=== PATIENT | female | born 1930 | race Caucasian/White ===

== ENCOUNTER 2017-07-26 19:34 | Inpatient (IN) | payer OTHER, MEDICARE ==
[2017-07-26 19:10] VITALS: O2SAT 100
[2017-07-26] MEDS ORDERED: MIDAZOLAM HCL 5 MG/ML VIAL (1 ML) ONE (19:42)
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
[2017-07-26] MEDS ORDERED: IOHEXOL 350 MG/ML 10 ML VIAL (for RAD DIAG) IVCONTRAST ONE (20:08)
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
[2017-07-26 20:16] LABS: AUTOMATED NEUTROPHIL # 9.8 TH/MM3 (1.8-7.7); BASOPHIL # 0.1 TH/MM3 (0-0.2); BASOPHIL % 0.5 % (0.0-2.0); EOSINOPHIL # 0.1 TH/MM3 (0-0.4); EOSINOPHIL % 0.8 % (0.0-4.0); HEMATOCRIT 40.8 % (35.0-46.0); HEMO FLAGS DIFF FINAL; LYMPH % 25.4 % (9.0-44.0); LYMPHOCYTE # 3.5 TH/MM3 (1.0-4.8); MEAN CELL VOLUME 95.3 FL (80.0-100.0); MEAN CORPUSCULAR HEMOGLOBIN 31.5 PG (27.0-34.0); MONO % 2.8 % (0.0-8.0); NEUT % 70.5 % (16.0-70.0); PLATELET COUNT 302 TH/MM3 (150-450); RED BLOOD COUNT 4.28 MIL/MM3 (4.00-5.30); WHITE BLOOD COUNT 13.9 TH/MM3 (4.0-11.0)
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
[2017-07-26] MEDS ORDERED: SODIUM CHLOR 0.9% 1000 ML INJ 1,000 ML IV SCH (20:18)
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
[2017-07-26 20:28] LABS: I-STAT POTASSIUM 3.6 MMOL/L (3.5-4.9)
[2017-07-26] MEDS ORDERED: MAGNESIUM HYDROXIDE SUSP 30 ML CUP PO PRN (20:30)
[2017-07-26] MEDS ORDERED: SENNOSIDES 8.6 MG TAB PO PRN (20:30)
[2017-07-26] MEDS ORDERED: BISACODYL 10 MG SUPP RECTAL PRN (20:30)
[2017-07-26] MEDS ORDERED: HYDROmorphone HCL PF 1 MG/ML VIAL IV PUSH PRN (20:30)
[2017-07-26] MEDS ORDERED: LACTULOSE SYRUP 20 GM/30 ML CUP PO PRN (20:30)
[2017-07-26] MEDS ORDERED: CHLORHEXIDINE GLUCONATE 2 % 1 PACK (2 CLOTHS) TOP PRN (20:30)
[2017-07-26] MEDS ORDERED: MISCELLANEOUS NURSING INFORMATION XX SCH (20:30)
[2017-07-26 20:39] LABS: APTT (PATIENT) 21.3 SEC (24.3-30.1); PROTHROMBIN TIME - PATIENT 10.7 SEC (9.8-11.6)
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
[2017-07-26 21:00] VITALS: BP 156/67; PULSE 85; RESP 25; TEMP 97.8; O2SAT 93
[2017-07-26] MEDS: DOCUSATE SODIUM 50 MG/SENNA 8.6 MG TAB PO SCH (21:00)
[2017-07-26] MEDS ORDERED: HEPARIN SODIUM - SQ 10,000 UNITS/ML VIAL SQ SCH (21:00)
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
[2017-07-26] MEDS: ACETAMINOPHEN 1000 MG/100 ML 100 ML IV SCH (21:33)
[2017-07-26] MEDS: HYDROmorphone HCL PF 1 MG/ML VIAL IV PUSH PRN (21:34)
[2017-07-26] MEDS: MELATONIN 5 MG TAB PO SCH (21:45)
[2017-07-26 22:00] VITALS: PULSE 85
[2017-07-26] MEDS ORDERED: ONDANSETRON HCL 4 MG/2 ML VIAL IV PUSH PRN (22:30)
[2017-07-26] MEDS: RESP: ALBUTEROL 2.5 MG/IPRATROPIUM 0.5 MG NEB (SCH) NEB (22:37)
[2017-07-26 22:39] VITALS: O2SAT 100
[2017-07-26] MEDS ORDERED: PILL SPLITTER OTHER PRN (23:00)
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
[2017-07-27] VITALS (14 sets, daily range): BP systolic 111–168; BP diastolic 52–67; PULSE 56–98; RESP 14–24; TEMP 97.6–98.1; O2SAT 99–100
[2017-07-27] MEDS: ACETAMINOPHEN 1000 MG/100 ML 100 ML IV SCH ×3 (02:40→16:39)
[2017-07-27] MEDS: FAMOTIDINE 20 MG/2 ML VIAL IV PUSH SCH ×3 (02:50→22:55)
[2017-07-27] MEDS: RESP: ALBUTEROL 2.5 MG/IPRATROPIUM 0.5 MG NEB (SCH) NEB ×4 (03:54→21:05)
[2017-07-27] MEDS: CHLORHEXIDINE GLUCONATE 2 % 1 PACK (2 CLOTHS) TOP SCH (04:00)
[2017-07-27 05:53] LABS: AUTOMATED NEUTROPHIL # 12.4 TH/MM3 (1.8-7.7); BASOPHIL % 0.2 % (0.0-2.0); HEMO FLAGS DIFF FINAL; LYMPH % 7.2 % (9.0-44.0); MEAN CELL VOLUME 95.6 FL (80.0-100.0); MEAN CORPUSCULAR HGB CONC 32.4 % (32.0-36.0); MONO % 4.6 % (0.0-8.0); PLATELET COUNT 214 TH/MM3 (150-450); RED BLOOD COUNT 3.14 MIL/MM3 (4.00-5.30); RED CELL DISTRIBUTION WIDTH 15.6 % (11.6-17.2); WHITE BLOOD COUNT 14.2 TH/MM3 (4.0-11.0)
[2017-07-27] MEDS: predniSONE 1 MG TAB PO SCH (08:22)
[2017-07-27 08:44] LABS: BICARBONATE 25.9 MEQ/L (21.0-32.0); POTASSIUM 4.4 MEQ/L (3.5-5.1)
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
--- NOTE | 2017-07-27 08:56 | EKG ---
Date Performed: 07/27/2017 Time Performed: 05:22:34 PTAGE: 86 years EKG: Sinus rhythm Inferior T wave changes are nonspecific Borderline ECG NO PREVIOUS TRACING DOCTOR: Lance Chan Interpretating Date/Time 07/27/2017 08:55:17
[2017-07-27] MEDS: CHOLECALCIFEROL (VIT D3) 1000 UNIT TAB PO SCH (09:00)
[2017-07-27] MEDS: DOCUSATE SODIUM 50 MG/SENNA 8.6 MG TAB PO SCH ×2 (09:00→20:19)
[2017-07-27] MEDS: HYDROmorphone HCL PF 1 MG/ML VIAL IV PUSH PRN (10:16)
[2017-07-27] MEDS ORDERED: ceFAZolin 2 GM PREMIX 50 ML ONE (11:08)
[2017-07-27] MEDS ORDERED: VANCOMYCIN HCL 1000 MG VIAL ONE (11:08)
[2017-07-27] MEDS ORDERED: SODIUM CHLOR 0.9% 250 ML INJ 250 ML ONE (11:09)
[2017-07-27] MEDS ORDERED: GENTAMICIN SULFATE 80 MG/2 ML VIAL ONE (11:09)
[2017-07-27] MEDS ORDERED: ceFAZolin INJ 1,000 MG VIAL ONE (11:36)
[2017-07-27] MEDS ORDERED: BACITRACIN TOP OINT 15 GM TUBE ONE (12:42)
[2017-07-27] MEDS: LACTATED RINGER'S 1000 ML INJ 1,000 ML IV SCH (13:59)
[2017-07-27] MEDS ORDERED: MORPHINE SULFATE 4 MG/ML INJ IV PUSH PRN (14:00)
[2017-07-27] MEDS ORDERED: SODIUM CHLORIDE 0.9% FLUSH 5 ML FLUSH IVF PRN (14:00)
--- NOTE | 2017-07-27 14:12 | PD.OP ---
cc: Malick Ashford MD Operative Report Date of Surgery: Jul 27, 2017 Preoperative Diagnosis: Displaced left proximal tibia fracture, left leg open wound, comminuted right tibia-fibula fractures Postoperative Diagnosis: Procedure: Closed reduction left tibia plateau fracture, external fixation left leg, complex wound closure 15 cm in length left leg, application wound VAC dressing left leg, intramedullary fixation right tibia Surgeon: Malick Ashford Solution Advisor(s): Antonio Noriega PA-C The surgical procedure was assisted by my physician residential living assistant. My P.A. presence was necessary throughout this case for the manipulation and positioning of the surgical extremity. My P.A. was assisting me throughout the duration of this procedure. The skill set of a physician residential living assistant was medically necessary to complete this procedure. During the surgical case the rn surgical was working at the back table and the physician residential living assistant was directly assisting me. Operation and Findings: This patient sustained an injury resulting in comminuted fractures of left proximal tibia and right distal tibia shaft.. Patient was seen and evaluated preoperatively and found to have too much swelling to proceed with open reduction internal fixation of left tibial plateau. Risk and benefits of surgery were discussed in depth with patient and informed consent was confirmed. Surgical site was marked. Patient was brought to operating room and placed on the OR table. Patient was given IV sedation and GETA. Patient received IV antibiotics and timeout procedure was performed. The left leg was prepped with alcohol followed by Hibiclens and draped in the usual sterile fashion. Procedure began with attention turned towards the left leg laceration. Patient had a large degloving of her proximal calf. Skin subcutaneous tissue and fascia were sharply debrided with scalpel and rongeur. At this point attention was turned to wound closure. The skin was carefully closed with 3-0 nylon. A combination of retention suture and vertical mattress sutures were utilized for closure. Complete closure was not obtainable secondary to skin loss. Next attention was turned to wound VAC dressing. A wound VAC was cut to fit the wound. VAC dressing was now sealed with Ioban. The seal was checked and found to be appropriate. The Vac dressing was set on intermittent 100 mmHg. Next attention was turned towards external fixation of the left leg . Two small incisions were made along the anterior femur and the tibia. Soft tissue was dissected bluntly. Cannulas were placed down to the cortex of bone. Pin sites were predrilled. Orthofix pins were placed into the femur and tibia. Fluoroscopy was used to confirm appropriate pin placement. An external fixator construct was now created with clamps and bars. Next attention was turned to reduction. Traction was applied. Fracture was manipulated. Good alignment of the fracture was obtained. Fluoroscopy was used to confirm appropriate alignment of fracture. The external fixator was now tightened to hold reduction. Sterile dressings were applied. Patient did have swelling around the knee and calf but compartments were soft and compressible with no signs of compartment syndrome. Attention was now turned towards the right leg. The right leg was prepped with alcohol followed by Hibiclens and draped in usual sterile fashion. Procedure began with reduction of fracture. Traction was applied. Fracture was reduced. There was comminution of the fracture. The fracture reduced and excellent alignment was achieved. Fracture clamp was used to aid in reduction. Next a 3 cm incision was made proximal to the patella. Quadriceps tendon was split in line with fibers. Cannulas were placed in the patellofemoral joint to protect the articular surface at all times. A guidepin was placed into the tibia and advanced in the tibial canal. Fluoroscopy was used to confirm appropriate guidepin placement. An opening reamer was used to open the tibial canal. A ball-tipped guidewire was advanced down the tibial canal. Guidepin was passed across the fracture site into the center of the distal tibia. Fluoroscopy confirmed guidepin placement. The nail length was now measured. The fracture was now held in a reduced position and the canal was reamed. The canal was reamed up to appropriate size. A ITS nail was now selected. Next the nail was fully seated. Using perfect [place] technique 4 distal interlocking screws were placed. Using the insertion handle as a guide 2 proximal interlocking screws were placed. Fluoroscopy confirmed excellent of fracture with well-placed hardware. Incisions and the knee joint were thoroughly irrigated with sterile saline. Fascia was closed with #1 Vicryl, subcutaneous tissues closed with 3-0 Vicryl and skin was closed with chana. Sterile dressings were applied. Patient was placed into a well molded splint. Patient was awakened and transferred to recovery in stable condition. Malick Ashford MD Jul 27, 2017 14:12
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
[2017-07-27] MEDS ORDERED: Post-op Orders (for Pharmacy) MISC XX ONE (14:33)
[2017-07-27] MEDS ORDERED: DO NOT ADM ANY ANTICOAGULANT DRUGS PRN (15:00)
[2017-07-27] MEDS ORDERED: *morphine SULFATE 8 MG/ML PERIprocedure ONLY ONE (15:00)
[2017-07-27] MEDS ORDERED: *ENALAPRILAT 1.25 MG/ML VIAL PERIprocedural Use ONLY ONE (15:38)
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
--- NOTE | 2017-07-27 19:08 | ECHRPT ---
Indication: sob CONCLUSIONS The left ventricular systolic function is normal with an estimated ejection fraction in the range of 60-65%. Mild concentric left ventricular hypertrophy. Doppler parameters are consistent with impaired left ventricular relaxtion (grade 1 diastolic dysfun ction). Trace mitral valve regurgitation. There is mild tricuspid valve regurgitation. BP: / HR: Rhythm: Technical Quality:Good FINDINGS LEFT VENTRICLE Normal left ventricular size. Mild concentric left ventricular hypertrophy. The left ventricular systolic function is normal with an estimated ejection fraction in the range of 60-65%. No regional wall motion abnormalities are present. Doppler parameters are consistent with impaired left ventricular relaxtion (grade 1 diastolic dysfun ction). RIGHT VENTRICLE Normal right ventricular size and systolic function. LEFT ATRIUM The left atrial size is upper limits of normal. RIGHT ATRIUM The right atrium is not well visualized. ATRIAL SEPTUM Normal atrial septal thickness without atrial level shunting by limited color doppler interrogation. AORTA The aortic root and proximal ascending aorta are normal in size on limited imaging. MITRAL VALVE Structurally normal mitral valve. Trace mitral valve regurgitation. No mitral valve stenosis. Mild mitral annular calcification. AORTIC VALVE Trileaflet aortic valve. No aortic valve stenosis. No aortic valve regurgitation. TRICUSPID VALVE Structurally normal tricuspid valve. There is mild tricuspid valve regurgitation. No tricuspid valve stenosis. PULMONARY VALVE The pulmonary valve is not well visualized. VESSELS The inferior vena cava is normal in size. PERICARDIUM No pericardial effusion. Paras Carpenter DO (Electronically Signed) Final Date:27 July 2017 19:08
--- NOTE | 2017-07-27 19:42 | RADRPT ---
EXAM DATE/TIME: 07/27/2017 13:01 [facility] COMPARISON: TIBIA/FIBULA LEFT (AP/LAT), July 26, 2017, 19:27. INDICATIONS : External fixator left tib fib. MEDICAL HISTORY : Fractures proximal tibia and fibula SURGICAL HISTORY : None. ENCOUNTER: Subsequent ACUITY: 2 days PAIN SCORE: Non-responsive. LOCATION: Left Tib Fib FINDINGS: Two view examination of the left tibia demonstrates fractures of the proximal tibia and fibula. These appear fairly well aligned. CONCLUSION: Proximal tibia and fibular fractures in good alignment. Eris Guevara MD on July 27, 2017 at 19:40 Board Certified Radiologist. This report was verified electronically.
--- NOTE | 2017-07-27 20:09 | RADRPT ---
EXAM DATE/TIME: 07/27/2017 13:50 [facility] COMPARISON: TIBIA/FIBULA RIGHT (AP/LAT), July 26, 2017, 19:27. INDICATIONS : Im leticia right tibia and fibula. MEDICAL HISTORY : Comminuted fractures distal tibia and fibula SURGICAL HISTORY : None. ENCOUNTER: Subsequent ACUITY: 2 days PAIN SCORE: Non-responsive. LOCATION: Right Tib Fib. FINDINGS: 6 images have been submitted. There is a long leticia through the tibia successful reducing the distal ti bial fracture. There appears to be a fracture of the distal fibula. The knee and ankle joints are ali gned. CONCLUSION: Successful ORIF of a distal tibial fracture. Eris Guevara MD on July 27, 2017 at 20:07 Board Certified Radiologist. This report was verified electronically.
[2017-07-27] MEDS: ACETAMINOPHEN/HYDROcodone 325 MG/7.5 MG TAB PO PRN (20:18)
[2017-07-27] MEDS: MELATONIN 5 MG TAB PO SCH (20:19)
[2017-07-27] MEDS: SODIUM CHLORIDE 0.9% FLUSH 5 ML FLUSH IVF SCH (20:21)
[2017-07-28] VITALS (13 sets, daily range): BP systolic 107–173; BP diastolic 54–75; PULSE 79–101; RESP 15–25; TEMP 96.8–99.1; O2SAT 95–100
[2017-07-28] MEDS: CHLORHEXIDINE GLUCONATE 2 % 1 PACK (2 CLOTHS) TOP SCH (04:00)
[2017-07-28] MEDS: LACTATED RINGER'S 1000 ML INJ 1,000 ML IV SCH ×2 (04:47→12:39)
[2017-07-28] MEDS: RESP: ALBUTEROL 2.5 MG/IPRATROPIUM 0.5 MG NEB (SCH) NEB ×4 (04:54→21:31)
[2017-07-28 04:57] LABS: HEMATOCRIT 25.8 % (35.0-46.0); REVIEW FLAG FINAL
[2017-07-28 05:25] LABS: ANION GAP 7 MEQ/L (5-15); AST (GOT) 26 U/L (15-37); BICARBONATE 23.9 MEQ/L (21.0-32.0); BLOOD UREA NITROGEN 21 MG/DL (7-18); CHLORIDE 110 MEQ/L (98-107); GLOMERULAR FILTRATION RATE 67 ML/MIN (>89); POTASSIUM 4.5 MEQ/L (3.5-5.1); SODIUM (NA) 141 MEQ/L (136-145)
[2017-07-28 05:27] LABS: ALT (GPT) 20 U/L (10-53)
[2017-07-28 05:28] LABS: ALKALINE PHOSPHATASE 53 U/L (45-117); TOTAL BILIRUBIN ADULT 0.4 MG/DL (0.2-1.0)
[2017-07-28] MEDS: ACETAMINOPHEN/HYDROcodone 325 MG/7.5 MG TAB PO PRN ×4 (07:52→20:25)
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
[2017-07-28] MEDS: predniSONE 1 MG TAB PO SCH (09:06)
[2017-07-28] MEDS: DOCUSATE SODIUM 50 MG/SENNA 8.6 MG TAB PO SCH ×2 (09:06→20:25)
[2017-07-28] MEDS: CHOLECALCIFEROL (VIT D3) 1000 UNIT TAB PO SCH (09:06)
--- NOTE | 2017-07-28 09:23 | PD.ORT.PN ---
Subjective Subjective Remarks No complaints Nurse at bedside. In ISC Objective Vitals Vital Signs Date Time Temp Pulse Resp B/P (MAP) Pulse Ox O2 Delivery O2 Flow Rate FiO2 07/28/17 06:00 80 07/28/17 04:57 100 Nasal Cannula 2.00 07/28/17 04:00 80 07/28/17 04:00 98.1 84 15 129/62 (84) 98 07/28/17 02:00 83 07/28/17 01:15 99 Nasal Cannula 2.00 07/28/17 00:00 79 07/28/17 00:00 98.0 81 25 121/56 (77) 99 07/27/17 22:00 84 07/27/17 20:11 99 Nasal Cannula 2.00 07/27/17 20:00 97.9 79 23 136/64 (88) 100 07/27/17 20:00 99 Nasal Cannula 2.00 07/27/17 20:00 79 07/27/17 18:00 78 07/27/17 16:00 97.6 56 21 168/67 (100) 100 07/27/17 16:00 56 07/27/17 15:37 97.4 64 16 153/66 (95) 100 Nasal Cannula 3 07/27/17 15:30 60 16 174/73 (106) 100 Nasal Cannula 3 07/27/17 15:15 65 16 170/74 (106) 100 Nasal Cannula 3 07/27/17 15:00 69 17 175/70 (105) 100 Nasal Cannula 3 07/27/17 14:45 66 15 163/70 (101) 100 Nasal Cannula 3 07/27/17 14:33 98.4 72 15 152/66 (94) 100 Nasal Cannula 3 Manual Cuff/Auscultation 07/27/17 11:03 Nasal Cannula 3 07/27/17 10:00 90 I/O 07/27/17 07/27/17 07/27/17 07/28/17 07/28/17 07/28/17 07:00 15:00 23:00 07:00 15:00 23:00 Intake Total 200 ml 1000 ml 414 ml 1200 ml Output Total 800 ml 600 ml 200 ml 750 ml Balance -600 ml 400 ml 214 ml 450 ml Intake Oral 60 ml 100 ml IV Total 200 ml 354 ml 1100 ml Other 1000 ml Output Urine Total 800 ml 500 ml 100 ml 600 ml Stool Total 0 ml 0 ml Drainage Total 100 ml 150 ml Estimated Blood Loss 100 ml # Bowel Movements 0 Result Diagram: 07/28/17 0429 07/28/179 Imaging Last 24 hours Impressions Pelvis X-Ray 07/26/171951 Signed Impressions: Service Date/Time: July 19:27 - CONCLUSION: Unremarkable examination of the pelvis. Nikolas Andrews MD Head CT 07/26/171951 Signed Impressions: Service Date/Time: July 19:51 - CONCLUSION: 1. No acute intracranial abnormalities. Nikolas Andrews MD Chest X-Ray 07/26/171951 Signed Impressions: Service Date/Time: July 19:27 - CONCLUSION: No acute disease. Nikolas Andrews MD Chest CT 07/26/171951 Signed Impressions: Service Date/Time: July 19:57 - CONCLUSION: 1. Negative for acute traumatic injury within the thorax. 2. 10 mm and 7 mm nodules in the right lower lobe posteriorly, indeterminate for malignancy. These should be followed with PET CT as an outpatient. Nikolas Andrews MD Abdomen/Pelvis CT 07/26/171951 Signed Impressions: Service Date/Time: July 19:55 - CONCLUSION: 1. Negative for acute traumatic injury within the abdomen. 2. Soft tissue contusion anterior abdominal wall. 3. 3 cm abdominal aortic aneurysm without rupture. 4. 4.5 cm right adnexal cyst. Nikolas Andrews MD Objective Remarks Left leg: EX fix intact. Sensation normal. Mild swelling. Dressing dry root Right leg: In a splint. Sensation distally normal. Wiggles her toes. No drainage Assessment & Plan Ortho Post Op Day #: 1 Problem List: Assessment and Plan Postoperative day #1 status post external fixation left tibial plateau fracture with closure of skin laceration and application of wound VAC dressing. Postop day #2 status post right tibia reduction and intramedullary nail fixation. PLAN: Nonweightbearing bilateral legs Lovenox Possible definitive ORIF left tibial plateau next week if swelling improves Continue VAC. Transfer to orthopedic floor Chava Mckay MD Jul 28, 2017 09:23
[2017-07-28] MEDS: SODIUM CHLORIDE 0.9% FLUSH 5 ML FLUSH IVF SCH ×2 (09:47→20:29)
[2017-07-28] MEDS: FAMOTIDINE 20 MG/2 ML VIAL IV PUSH SCH (11:00)
[2017-07-28] MEDS: METOPROLOL SUCCINATE 25 MG EXTENDED RELEASE TAB PO SCH (11:13)
[2017-07-28] MEDS: ENOXAPARIN SODIUM 30 MG/0.3 ML SYRINGE SQ SCH (12:01)
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
[2017-07-28] MEDS: FAMOTIDINE 20 MG TAB PO SCH (20:25)
[2017-07-28] MEDS: MELATONIN 5 MG TAB PO SCH (20:25)
[2017-07-29] VITALS (7 sets, daily range): BP systolic 117–150; BP diastolic 49–64; PULSE 81–94; RESP 16–18; TEMP 97–99.4; O2SAT 92–99
[2017-07-29] MEDS: LACTATED RINGER'S 1000 ML INJ 1,000 ML IV SCH ×2 (02:51→15:57)
[2017-07-29] MEDS: RESP: ALBUTEROL 2.5 MG/IPRATROPIUM 0.5 MG NEB (SCH) NEB ×2 (03:12→07:59)
[2017-07-29] MEDS: CHLORHEXIDINE GLUCONATE 2 % 1 PACK (2 CLOTHS) TOP SCH (03:38)
[2017-07-29] MEDS: ACETAMINOPHEN/HYDROcodone 325 MG/7.5 MG TAB PO PRN ×3 (04:56→11:34)
[2017-07-29] MEDS: FAMOTIDINE 20 MG TAB PO SCH ×2 (07:59→21:38)
[2017-07-29] MEDS: predniSONE 1 MG TAB PO SCH (07:59)
[2017-07-29] MEDS: CHOLECALCIFEROL (VIT D3) 1000 UNIT TAB PO SCH (08:00)
[2017-07-29] MEDS: DOCUSATE SODIUM 50 MG/SENNA 8.6 MG TAB PO SCH ×2 (08:00→21:38)
[2017-07-29] MEDS: METOPROLOL SUCCINATE 25 MG EXTENDED RELEASE TAB PO SCH (08:00)
--- NOTE | 2017-07-29 08:02 | PD.ORT.PN ---
Subjective Subjective Remarks Laying in bed comfortably. No new complaints. She continues to have bilateral knee pain. She has questions about surgery and discharge. No new chest pain or shortness of breath. Objective Vitals Vital Signs Date Time Temp Pulse Resp B/P (MAP) Pulse Ox O2 Delivery O2 Flow Rate FiO2 07/29/17 05:56 18 07/29/17 04:00 97.4 86 16 131/61 (84) 99 07/28/17 23:50 97.6 92 16 119/56 (77) 98 07/28/17 21:41 Room Air 07/28/17 20:50 98.4 101 19 134/61 (85) 98 07/28/17 16:00 99.1 98 18 142/54 (83) 98 07/28/17 12:49 Room Air 07/28/17 12:30 96.8 85 18 107/60 (76) 96 07/28/17 10:12 95 21 07/28/17 10:00 100 07/28/17 08:00 98.6 92 19 173/75 (107) 100 Manual Cuff/Auscultation 07/28/17 08:00 92 I/O 07/28/17 07/28/17 07/28/17 07/29/17 07/29/17 07/29/17 07:00 15:00 23:00 07:00 15:00 23:00 Intake Total 1200 ml 618 ml 300 ml 120 ml Output Total 750 ml 150 ml 800 ml 550 ml Balance 450 ml -150 ml -182 ml 300 ml -430 ml Intake Oral 100 ml 240 ml 120 ml IV Total 1100 ml 378 ml 300 ml Output Urine Total 600 ml 800 ml 550 ml Stool Total 0 ml Drainage Total 150 ml 150 ml # Bowel Movements 0 0 Result Diagram: 07/28/179 07/28/17 0429 Imaging Last 24 hours Impressions Pelvis X-Ray 07/26/171951 Signed Impressions: Service Date/Time: July 19:27 - CONCLUSION: Unremarkable examination of the pelvis. Nikolas Andrews MD Head CT 07/26/171951 Signed Impressions: Service Date/Time: July 19:51 - CONCLUSION: 1. No acute intracranial abnormalities. Nikolas Andrews MD Chest X-Ray 07/26/171951 Signed Impressions: Service Date/Time: July 19:27 - CONCLUSION: No acute disease. Nikolas Andrews MD Chest CT 07/26/171951 Signed Impressions: Service Date/Time: July 19:57 - CONCLUSION: 1. Negative for acute traumatic injury within the thorax. 2. 10 mm and 7 mm nodules in the right lower lobe posteriorly, indeterminate for malignancy. These should be followed with PET CT as an outpatient. Nikolas Andrews MD Abdomen/Pelvis CT 07/26/171951 Signed Impressions: Service Date/Time: July 19:55 - CONCLUSION: 1. Negative for acute traumatic injury within the abdomen. 2. Soft tissue contusion anterior abdominal wall. 3. 3 cm abdominal aortic aneurysm without rupture. 4. 4.5 cm right adnexal cyst. Nikolas Andrews MD Objective Remarks Laying in bed NAD Left leg EX fix intact. Pin sites clean. No other skin abnormality Sensation normal. EHL 5/5. Cap refill less than 2 secs Right leg In long splint, skin appears intact, mild swelling toes Sensation distally normal. EHL 5/5. Cap refill less than 2 secs Assessment & Plan Ortho Post Op Day #: 2 Problem List: Assessment and Plan Postoperative day #2 status post external fixation left tibial plateau fracture with closure of skin laceration and application of wound VAC dressing. Postop day #2 status post right tibia reduction and intramedullary nail fixation. PLAN: Transferred to yesterday. Ortho stable. Nonweightbearing bilateral legs Lovenox Possible definitive ORIF left tibial plateau next week if swelling improves Continue VAC. Follow with Dr. Dawn team. Bri Johnson Jul 29, 2017 08:02
[2017-07-29] MEDS: SODIUM CHLORIDE 0.9% FLUSH 5 ML FLUSH IVF SCH ×2 (08:09→21:00)
[2017-07-29] MEDS: POLYETHYLENE GLYCOL 17 GM PKG PO SCH (09:00)
[2017-07-29 09:33] LABS: AUTOMATED NEUTROPHIL # 3.2 TH/MM3 (1.8-7.7); BASOPHIL % 0.9 % (0.0-2.0); EOSINOPHIL # 0.3 TH/MM3 (0-0.4); HEMATOCRIT 22.4 % (35.0-46.0); HEMO FLAGS DIFF FINAL; LYMPH % 21.4 % (9.0-44.0); LYMPHOCYTE # 1.1 TH/MM3 (1.0-4.8); MEAN CELL VOLUME 96.4 FL (80.0-100.0); MEAN CORPUSCULAR HGB CONC 33.2 % (32.0-36.0); MONO % 12.4 % (0.0-8.0); NEUT % 60.3 % (16.0-70.0); PLATELET COUNT 156 TH/MM3 (150-450); RED BLOOD COUNT 2.32 MIL/MM3 (4.00-5.30); RED CELL DISTRIBUTION WIDTH 15.9 % (11.6-17.2); WHITE BLOOD COUNT 5.3 TH/MM3 (4.0-11.0)
[2017-07-29] MEDS: ENOXAPARIN SODIUM 30 MG/0.3 ML SYRINGE SQ SCH (11:18)
[2017-07-29] MEDS ORDERED: SODIUM CHLOR 0.9% 250 ML INJ 250 ML IV ONE (11:45)
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
[2017-07-29] MEDS: ACETAMINOPHEN/HYDROcodone 325 MG/5 MG TAB PO PRN (14:28)
[2017-07-29] MEDS: traZODone HCL 50 MG TAB PO SCH (21:00)
[2017-07-29] MEDS: MELATONIN 5 MG TAB PO SCH (21:00)
[2017-07-30] MEDS: ACETAMINOPHEN/HYDROcodone 325 MG/5 MG TAB PO PRN ×4 (02:41→21:38)
[2017-07-30 06:50] LABS: ALT (GPT) 11 U/L (10-53); ANION GAP 7 MEQ/L (5-15); AST (GOT) 19 U/L (15-37); BICARBONATE 30.1 MEQ/L (21.0-32.0); BLOOD UREA NITROGEN 14 MG/DL (7-18); CHLORIDE 104 MEQ/L (98-107); GLOMERULAR FILTRATION RATE 80 ML/MIN (>89); POTASSIUM 3.7 MEQ/L (3.5-5.1); SODIUM (NA) 141 MEQ/L (136-145)
[2017-07-30 06:52] LABS: ALKALINE PHOSPHATASE 71 U/L (45-117); TOTAL BILIRUBIN ADULT 1.3 MG/DL (0.2-1.0)
[2017-07-30 08:00] VITALS: BP 155/56; PULSE 101; RESP 16; TEMP 98.5; O2SAT 95
[2017-07-30] MEDS: POLYETHYLENE GLYCOL 17 GM PKG PO SCH (08:35)
[2017-07-30] MEDS: FAMOTIDINE 20 MG TAB PO SCH ×2 (08:35→21:37)
[2017-07-30] MEDS: CHOLECALCIFEROL (VIT D3) 1000 UNIT TAB PO SCH (08:35)
[2017-07-30] MEDS: METOPROLOL SUCCINATE 25 MG EXTENDED RELEASE TAB PO SCH (08:35)
[2017-07-30] MEDS: predniSONE 1 MG TAB PO SCH (08:35)
[2017-07-30] MEDS: DOCUSATE SODIUM 50 MG/SENNA 8.6 MG TAB PO SCH ×2 (08:35→21:37)
[2017-07-30] MEDS: SODIUM CHLORIDE 0.9% FLUSH 5 ML FLUSH IVF SCH ×2 (08:41→21:38)
[2017-07-30 08:59] LABS: AUTOMATED NEUTROPHIL # 7.5 TH/MM3 (1.8-7.7); BASOPHIL % 0.3 % (0.0-2.0); EOSINOPHIL # 0.1 TH/MM3 (0-0.4); EOSINOPHIL % 1.4 % (0.0-4.0); HEMO FLAGS DIFF FINAL; LYMPH % 13.5 % (9.0-44.0); LYMPHOCYTE # 1.3 TH/MM3 (1.0-4.8); MEAN CELL VOLUME 93.8 FL (80.0-100.0); MEAN CORPUSCULAR HEMOGLOBIN 32.1 PG (27.0-34.0); MEAN CORPUSCULAR HGB CONC 34.3 % (32.0-36.0); MONO % 8.5 % (0.0-8.0); NEUT % 76.3 % (16.0-70.0); PLATELET COUNT 177 TH/MM3 (150-450); RED BLOOD COUNT 2.89 MIL/MM3 (4.00-5.30); RED CELL DISTRIBUTION WIDTH 15.7 % (11.6-17.2); WHITE BLOOD COUNT 9.9 TH/MM3 (4.0-11.0)
--- NOTE | 2017-07-30 09:48 | PD.ORT.PN ---
Subjective Subjective Remarks some confusion Objective Vitals Vital Signs Date Time Temp Pulse Resp B/P (MAP) Pulse Ox O2 Delivery O2 Flow Rate FiO2 07/30/17 08:00 98.5 101 16 155/56 (89) 95 07/29/17 23:30 98.1 89 17 145/60 96 07/29/17 21:00 99.0 94 17 150/61 98 07/29/17 20:33 98.9 90 16 145/53 97 07/29/17 16:00 99.4 90 18 117/49 (71) 92 07/29/17 11:20 97.3 94 18 142/64 (90) 98 I/O 07/29/17 07/29/17 07/29/17 07/30/17 07/30/17 07/30/17 07:00 15:00 23:00 07:00 15:00 23:00 Intake Total 300 ml 700 ml 839 ml 520 ml Output Total 2200 ml 900 ml 1350 ml Balance 300 ml -1500 ml -61 ml -830 ml Intake Oral 600 ml 120 ml 120 ml IV Total 300 ml 100 ml 709 ml Packed Cells 400 ml Blood Product IV Normal Saline Flush 10 ml Output Urine Total 2200 ml 900 ml 1350 ml Drainage Total 0 ml # Bowel Movements 0 0 1 Result Diagram: 07/30/1725 07/30/17601 Imaging Last 24 hours Impressions Pelvis X-Ray 07/26/171951 Signed Impressions: Service Date/Time: July 19:27 - CONCLUSION: Unremarkable examination of the pelvis. Nikolas Andrews MD Head CT 07/26/171951 Signed Impressions: Service Date/Time: July 19:51 - CONCLUSION: 1. No acute intracranial abnormalities. Nikolas Andrews MD Chest X-Ray 07/26/171951 Signed Impressions: Service Date/Time: July 19:27 - CONCLUSION: No acute disease. Nikolas Andrews MD Chest CT 07/26/171951 Signed Impressions: Service Date/Time: July 19:57 - CONCLUSION: 1. Negative for acute traumatic injury within the thorax. 2. 10 mm and 7 mm nodules in the right lower lobe posteriorly, indeterminate for malignancy. These should be followed with PET CT as an outpatient. Nikolas Andrews MD Abdomen/Pelvis CT 07/26/171951 Signed Impressions: Service Date/Time: July 19:55 - CONCLUSION: 1. Negative for acute traumatic injury within the abdomen. 2. Soft tissue contusion anterior abdominal wall. 3. 3 cm abdominal aortic aneurysm without rupture. 4. 4.5 cm right adnexal cyst. Nikolas Andrews MD Objective Remarks Laying in bed NAD Left leg EX fix intact. Pin sites clean. wound vac in place with good seal Sensation normal. EHL 5/5. Cap refill less than 2 secs Right leg Short leg splint intact, mild swelling toes Sensation distally normal. EHL 5/5. Cap refill less than 2 secs Assessment & Plan Assessment and Plan Postoperative day #3 status post external fixation left tibial plateau fracture with closure of skin laceration and application of wound VAC dressing. Postop day #3 status post right tibia reduction and intramedullary nail fixation. PLAN: Nonweightbearing bilateral legs Lovenox Possible definitive ORIF left tibial plateau later this week if swelling improves Continue VAC. Elgin Norigea Jr. Jul 30, 2017 09:48
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
[2017-07-30 12:00] VITALS: BP 154/75; PULSE 93; RESP 18; TEMP 98.2; O2SAT 99
[2017-07-30] MEDS: ENOXAPARIN SODIUM 30 MG/0.3 ML SYRINGE SQ SCH (14:34)
[2017-07-30 16:00] VITALS: BP 153/72; PULSE 94; RESP 18; TEMP 98.1; O2SAT 97
[2017-07-30] MEDS ORDERED: MELATONIN 5 MG TAB PO SCH (21:00)
[2017-07-30 21:30] VITALS: BP 152/69; PULSE 95; RESP 20; TEMP 97.7; O2SAT 98
[2017-07-30] MEDS: traZODone HCL 50 MG TAB PO SCH (21:38)
[2017-07-30] MEDS ORDERED: SODIUM CHLORID 0.9% 500 ML IV PRN (23:15)
[2017-07-30] MEDS ORDERED: LACTATED RINGER'S 1000 ML IV PRN (23:15)
[2017-07-30] MEDS ORDERED: INSULIN HUMAN REGULAR 1,000 UNITS/10 ML VIAL SQ PRN (23:15)
[2017-07-30] MEDS ORDERED: CHLORHEXIDINE GLUCONATE 2 % 1 PACK (2 CLOTHS) TOPICAL PRN (23:15)
[2017-07-30] MEDS ORDERED: POVIDONE IODINE 5% (ANTISEPSIS KIT) 4 APPLICATIONS EACH NARE PRN (23:15)
[2017-07-31] VITALS (7 sets, daily range): BP systolic 121–151; BP diastolic 50–71; PULSE 88–111; RESP 16–20; TEMP 96.1–100.2; O2SAT 95–99
[2017-07-31] MEDS: ACETAMINOPHEN/HYDROcodone 325 MG/5 MG TAB PO PRN ×3 (06:59→22:47)
--- NOTE | 2017-07-31 07:12 | PD.ORT.PN ---
Subjective Subjective Remarks s/p IMN right tibia s/p exfix with vac application left proximal tibia doing well. confused. Objective Vitals Vital Signs Date Time Temp Pulse Resp B/P (MAP) Pulse Ox O2 Delivery O2 Flow Rate FiO2 07/31/17 00:50 98.3 88 20 144/68 (93) 97 07/30/17 21:30 97.7 95 20 152/69 (96) 98 07/30/17 16:00 98.1 94 18 153/72 (99) 97 07/30/17 12:00 98.2 93 18 154/75 (101) 99 07/30/17 08:00 98.5 101 16 155/56 (89) 95 I/O 07/30/17 07/30/17 07/30/17 07/31/17 07/31/17 07/31/17 07:00 15:00 23:00 07:00 15:00 23:00 Intake Total 520 ml 480 ml Output Total 1350 ml 250 ml 50 ml 25 ml Balance -830 ml 230 ml -50 ml -25 ml Intake Oral 120 ml 480 ml Packed Cells 400 ml Output Urine Total 1350 ml 250 ml Drainage Total 50 ml 25 ml # Bowel Movements 1 0 Result Diagram: 07/30/17 0825 07/30/17 0602 Imaging Last 24 hours Impressions Pelvis X-Ray 07/26/171951 Signed Impressions: Service Date/Time: July 19:27 - CONCLUSION: Unremarkable examination of the pelvis. Nikolas Andrews MD Head CT 07/26/171951 Signed Impressions: Service Date/Time: July 19:51 - CONCLUSION: 1. No acute intracranial abnormalities. Nikolas Andrews MD Chest X-Ray 07/26/171951 Signed Impressions: Service Date/Time: July 19:27 - CONCLUSION: No acute disease. Nikolas Andrews MD Chest CT 07/26/171951 Signed Impressions: Service Date/Time: July 19:57 - CONCLUSION: 1. Negative for acute traumatic injury within the thorax. 2. 10 mm and 7 mm nodules in the right lower lobe posteriorly, indeterminate for malignancy. These should be followed with PET CT as an outpatient. Nikolas Andrews MD Abdomen/Pelvis CT 07/26/171951 Signed Impressions: Service Date/Time: July 19:55 - CONCLUSION: 1. Negative for acute traumatic injury within the abdomen. 2. Soft tissue contusion anterior abdominal wall. 3. 3 cm abdominal aortic aneurysm without rupture. 4. 4.5 cm right adnexal cyst. Nikolas Andrews MD Objective Remarks Laying in bed NAD Left leg EX fix intact. Pin sites clean. wound vac in place with good seal Sensation normal. EHL 5/5. Cap refill less than 2 secs Right leg Short leg splint intact, mild swelling toes Sensation distally normal. EHL 5/5. Cap refill less than 2 secs Assessment & Plan Assessment and Plan Postoperative day #4 status post external fixation left tibial plateau fracture with closure of skin laceration and application of wound VAC dressing. Postop day #4 status post right tibia reduction and intramedullary nail fixation. PLAN: npo sign consents plan for surgery today Jesus Guardado Jul 31, 2017 07:12
[2017-07-31] MEDS: POLYETHYLENE GLYCOL 17 GM PKG PO SCH (07:53)
[2017-07-31] MEDS: FAMOTIDINE 20 MG TAB PO SCH ×2 (07:53→20:32)
[2017-07-31] MEDS: CHOLECALCIFEROL (VIT D3) 1000 UNIT TAB PO SCH (07:54)
[2017-07-31] MEDS: DOCUSATE SODIUM 50 MG/SENNA 8.6 MG TAB PO SCH ×2 (07:54→20:32)
[2017-07-31] MEDS: predniSONE 1 MG TAB PO SCH (09:00)
[2017-07-31] MEDS: METOPROLOL SUCCINATE 25 MG EXTENDED RELEASE TAB PO SCH (09:02)
[2017-07-31] MEDS: SODIUM CHLORIDE 0.9% FLUSH 5 ML FLUSH IVF SCH ×3 (09:09→20:32)
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
[2017-07-31] MEDS: BACITRACIN TOP OINT 15 GM TUBE TOPICAL SCH ×2 (12:00→20:32)
[2017-07-31] MEDS ORDERED: ACETAMINOPHEN 1000 MG/100 ML 100 ML IV ONE (12:10)
[2017-07-31] MEDS ORDERED: VANCOMYCIN HCL 1000 MG VIAL ONE (12:19)
[2017-07-31] MEDS ORDERED: ceFAZolin INJ 1,000 MG VIAL ONE (12:19)
[2017-07-31] MEDS ORDERED: GENTAMICIN SULFATE 80 MG/2 ML VIAL ONE (12:19)
[2017-07-31] MEDS ORDERED: LACTATED RINGER'S 1000 ML INJ 1,000 ML IV SCH (13:46)
--- NOTE | 2017-07-31 13:55 | PD.OP ---
cc: Malick Ashford MD Operative Report Date of Surgery: Jul 31, 2017 Preoperative Diagnosis: Displaced left proximal tibia fracture Postoperative Diagnosis: Procedure: Open reduction internal fixation left tibial plateau fracture, removal of external fixation Anesthesia: Gen. Surgeon: Malick Ashford Location Manager(s): GEORGI Espinosa PA-C The surgical procedure was assisted by my physician assistant facility manager. My P.A. presence was necessary throughout this case for the manipulation and positioning of the surgical extremity. My P.A. was assisting me throughout the duration of this procedure. The skill set of a physician assistant facility manager was medically necessary to complete this procedure. During the surgical case the surgical resident was working at the back table and the physician assistant facility manager was directly assisting me. Operation and Findings: This patient was seen and evaluated preoperatively. Patient sustained an injury resulting a left tibial plateau fracture. Informed consent was obtained preoperatively after detailed discussion of the risks and benefits of surgery. Risk of surgery including bleeding, infection, nonunion, painful hardware, stiffness, loss of motion, arthritis, need for knee replacement, as well as medical complications including blood clots, stroke, heart attack, and were discussed. I also discussed the possibility of using allograft bone graft . Preoperatively the operative site was marked. Patient was brought to the operating room and placed on the operating room table. Intravenous sedation and general endotracheal anesthesia were administered. IV antibiotics were given and a time out procedure was preformed. Procedure began with removal of a portion of the external fixation. Clamps were loosened. Clamps and bars were removed from the pins. The pins were left in place. The operative leg was prepped with alcohol followed by Hibiclens and draped in the usual sterile fashion. Procedure began with a 4-inch curvilinear incision over the anterolateral knee. Subcutaneous tissue was treated with Bovie. Iliotibial band was split in line with fibers. At this point attention was turned to reduction of fracture. Traction was applied. A temporary external fixator was placed on the ex-fix pins to hold reduction. Fluoroscopy revealed excellent alignment of fracture. A Synthes proximal tibial plate was selected. The plate was placed underneath the anterior tibialis muscle. The plate was provisionally held with K-wires. 3.5 cortical screws were used compress plate to bone distally, and a periarticular clamp was used to compress the medial and lateral tibial plateau fracture fragments together. Multiple locking screws were now placed proximally. Additional screws were placed in the shaft. K-wires were removed. Final fluoroscopy showed excellent alignment of fracture with well- placed hardware. The incision was thoroughly irrigated. Arthrotomy and iliotibial band closed with #1 Vicryl,. Subcutaneous tissues closed with 3-0 Vicryl and skin was closed with chana. Sterile dressings were applied. The external fixator pins were now removed. The patient was transferred to recovery in stable condition. Malick Ashford MD Jul 31, 2017 13:55
[2017-07-31] MEDS ORDERED: SODIUM CHLORIDE 0.9% FLUSH 5 ML FLUSH IVF PRN (14:00)
[2017-07-31] MEDS ORDERED: Post-op Orders (for Pharmacy) MISC XX ONE (14:00)
--- NOTE | 2017-07-31 14:08 | RADRPT ---
EXAM DATE/TIME: 07/31/2017 13:24 [place] COMPARISON: No previous studies available for comparison. INDICATIONS : ORIF left tibial plateau. MEDICAL HISTORY : Unobtainable. SURGICAL HISTORY : Unobtainable. ENCOUNTER: Subsequent ACUITY: 4 - 6 days PAIN SCORE: Non-responsive. LOCATION: Left knee. FINDINGS: Status post internal fixation of the proximal tibia. There is good position and alignment of fracture fragments. Hardware is grossly intact. There is good alignment at the knee joint. CONCLUSION: Good position and alignment on this postoperative study. Arturo Morfin MD on July 31, 2017 at 14:06 Board Certified Radiologist. This report was verified electronically.
[2017-07-31] MEDS ORDERED: DO NOT ADM ANY ANTICOAGULANT DRUGS PRN (14:11)
[2017-07-31] MEDS: ceFAZolin 2 GM PREMIX 50 ML IV SCH (20:31)
[2017-07-31] MEDS: traZODone HCL 50 MG TAB PO SCH (20:32)
[2017-07-31] MEDS: diphenhydrAMINE HCL 25 MG CAP PO PRN (22:47)
[2017-08-01] MEDS: VANCOMYCIN INJ 1,000 MG in SODIUM CHLOR 0.9% 250 ML INJ 250 ML IV SCH ×2 (01:13→13:03)
[2017-08-01] MEDS: ACETAMINOPHEN/HYDROcodone 325 MG/5 MG TAB PO PRN ×5 (04:19→23:05)
[2017-08-01] MEDS: ceFAZolin 2 GM PREMIX 50 ML IV SCH ×3 (04:19→22:53)
[2017-08-01 04:45] VITALS: BP 140/63; PULSE 109; RESP 16; TEMP 101; O2SAT 93
[2017-08-01 05:47] VITALS: TEMP 99.1
[2017-08-01 05:49] LABS: BASOPHIL % 0.4 % (0.0-2.0); EOSINOPHIL # 0.2 TH/MM3 (0-0.4); EOSINOPHIL % 1.7 % (0.0-4.0); HEMATOCRIT 26.2 % (35.0-46.0); HEMO FLAGS DIFF FINAL; LYMPHOCYTE # 0.9 TH/MM3 (1.0-4.8); MEAN CELL VOLUME 95.3 FL (80.0-100.0); MEAN CORPUSCULAR HEMOGLOBIN 32.3 PG (27.0-34.0); MEAN CORPUSCULAR HGB CONC 33.9 % (32.0-36.0); MONO % 14.8 % (0.0-8.0); NEUT % 75.1 % (16.0-70.0); PLATELET COUNT 239 TH/MM3 (150-450); RED BLOOD COUNT 2.75 MIL/MM3 (4.00-5.30); WHITE BLOOD COUNT 10.7 TH/MM3 (4.0-11.0)
[2017-08-01 06:12] LABS: POTASSIUM 4.2 MEQ/L (3.5-5.1)
--- NOTE | 2017-08-01 06:53 | PD.ORT.PN ---
Subjective Subjective Remarks POD 5 s/p IMN right tibia POD 1 s/p ORIF left proximal tibia with I&D and vac application of lower leg wound states having significant pain. Objective Vitals Vital Signs Date Time Temp Pulse Resp B/P (MAP) Pulse Ox O2 Delivery O2 Flow Rate FiO2 08/01/17 05:47 99.1 08/01/17 04:45 101.0 109 16 140/63 (88) 93 07/31/17 23:40 100.2 99 16 146/57 (86) 96 07/31/17 20:37 95 21 07/31/17 19:52 96.1 94 16 121/50 (73) 97 07/31/17 16:16 97.2 88 18 141/51 (81) 99 07/31/17 15:30 98.5 88 14 134/61 (85) 100 Nasal Cannula 2 07/31/17 15:15 88 14 145/56 (85) 100 Nasal Cannula 2 07/31/17 15:00 84 14 139/64 (89) 100 Nasal Cannula 2 07/31/17 14:45 83 14 150/64 (92) 100 Nasal Cannula 2 07/31/17 14:30 84 14 145/67 (93) 100 Nasal Cannula 2 07/31/17 14:19 98.5 89 14 166/70 (102) 100 Nasal Cannula 2 07/31/17 08:00 96.5 111 18 151/71 (97) 95 I/O 07/31/17 07/31/17 07/31/17 08/01/17 08/01/17 08/01/17 07:00 15:00 23:00 07:00 15:00 23:00 Intake Total 920 ml 170 ml 1222 ml Output Total 25 ml 650 ml 500 ml 175 ml Balance -25 ml 270 ml -330 ml 1047 ml Intake Oral 120 ml 120 ml 120 ml IV Total 50 ml 1102 ml Other 800 ml Output Urine Total 550 ml 500 ml 175 ml Drainage Total 25 ml 0 ml 0 ml Estimated Blood Loss 100 ml # Bowel Movements 0 0 0 Result Diagram: 08/01/1752508/01/17525 Imaging Last 24 hours Impressions Pelvis X-Ray 07/26/171951 Signed Impressions: Service Date/Time: July 19:27 - CONCLUSION: Unremarkable examination of the pelvis. Nikolas Andrews MD Head CT 07/26/171951 Signed Impressions: Service Date/Time: July 19:51 - CONCLUSION: 1. No acute intracranial abnormalities. Nikolas Andrews MD Chest X-Ray 07/26/171951 Signed Impressions: Service Date/Time: , July 26, 2017 19:27 - CONCLUSION: No acute disease. Nikolas Andrews MD Chest CT 07/26/171951 Signed Impressions: Service Date/Time: July 19:57 - CONCLUSION: 1. Negative for acute traumatic injury within the thorax. 2. 10 mm and 7 mm nodules in the right lower lobe posteriorly, indeterminate for malignancy. These should be followed with PET CT as an outpatient. Nikolas Andrews MD Abdomen/Pelvis CT 07/26/171951 Signed Impressions: Service Date/Time: July 19:55 - CONCLUSION: 1. Negative for acute traumatic injury within the abdomen. 2. Soft tissue contusion anterior abdominal wall. 3. 3 cm abdominal aortic aneurysm without rupture. 4. 4.5 cm right adnexal cyst. Nikolas Andrews MD Objective Remarks Laying in bed NAD Left leg dressings clean and dry. knee brace in place. wound vac in place with good seal Sensation normal. EHL 5/5. Cap refill less than 2 secs Right leg Short leg splint intact, mild swelling toes Sensation distally normal. EHL 5/5. Cap refill less than 2 secs Assessment & Plan Assessment and Plan 1) Right Distal Tibial Shaft Fx s/p IMN - POD 5 2) Left Proximal Tibia Fx s/p ORIF - POD 1 NWB BLE Maintain splint on RLE at all times Knee brace on Left knee at all times except for PT maintain vac on left leg at all times. 100mmHg, 3:1 PROM of left knee 0-90,. no quad sets or leg lifts CM for SNF placement f/u with [facility] in 2 weeks Jesus Guardado Aug 01, 2017 06:53
[2017-08-01] MEDS ORDERED: WHEEMIS3 (06:56)
[2017-08-01] MEDS ORDERED: ERGO1CAP30 PO (06:56)
[2017-08-01] MEDS ORDERED: VITA2000 PO (06:56)
[2017-08-01] MEDS ORDERED: CALCTAB19 PO (06:56)
[2017-08-01] MEDS ORDERED: XARE10TA PO (06:56)
[2017-08-01] MEDS ORDERED: HYDR-3580 PO (06:56)
[2017-08-01] MEDS: MAGNESIUM HYDROXIDE SUSP 30 ML CUP PO SCH ×2 (07:45→22:54)
[2017-08-01] MEDS: LACTULOSE SYRUP 20 GM/30 ML CUP PO SCH ×2 (07:45→09:00)
[2017-08-01 08:00] VITALS: BP 134/70; PULSE 100; RESP 18; TEMP 98.4; O2SAT 97
[2017-08-01] MEDS: CHOLECALCIFEROL (VIT D3) 1000 UNIT TAB PO SCH (08:39)
[2017-08-01] MEDS: predniSONE 1 MG TAB PO SCH (08:39)
[2017-08-01] MEDS: DOCUSATE SODIUM 50 MG/SENNA 8.6 MG TAB PO SCH ×2 (08:39→22:54)
[2017-08-01] MEDS: FAMOTIDINE 20 MG TAB PO SCH ×2 (08:39→22:54)
[2017-08-01] MEDS: METOPROLOL SUCCINATE 25 MG EXTENDED RELEASE TAB PO SCH (08:39)
[2017-08-01] MEDS: SODIUM CHLORIDE 0.9% FLUSH 5 ML FLUSH IVF SCH ×4 (08:40→22:55)
[2017-08-01] MEDS: POLYETHYLENE GLYCOL 17 GM PKG PO SCH (08:40)
[2017-08-01] MEDS: BACITRACIN TOP OINT 15 GM TUBE TOPICAL SCH ×2 (08:47→23:00)
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
[2017-08-01 12:00] VITALS: BP 112/56; PULSE 98; RESP 17; TEMP 98.9; O2SAT 96
[2017-08-01] MEDS: ENOXAPARIN SODIUM 30 MG/0.3 ML SYRINGE SQ SCH (13:03)
[2017-08-01] MEDS: diphenhydrAMINE HCL 25 MG CAP PO PRN (14:40)
[2017-08-01 17:24] VITALS: BP 153/61; PULSE 99; RESP 16; TEMP 99; O2SAT 94
[2017-08-01 19:17] VITALS: BP 146/57; PULSE 101; RESP 15; TEMP 98.6; O2SAT 90
[2017-08-01 21:05] LABS: BLOOD, URINE MOD (NEG); COMMENT (UR) CULT NOT INDICATED; CULTURE IF INDICATED CULT NOT INDICATED; GLUCOSE,URINE NEG (NEG); KETONE, URINE 10 mg/dL (NEG); NITRITE,URINE NEG (NEG); URINE COLOR YELLOW (YELLW/STRAW)
[2017-08-01] MEDS: traZODone HCL 50 MG TAB PO SCH (22:54)
[2017-08-01] MEDS: MELATONIN 5 MG TAB PO SCH (22:54)
[2017-08-02] VITALS (7 sets, daily range): BP systolic 129–162; BP diastolic 59–69; PULSE 91–98; RESP 16–18; TEMP 97–100.2; O2SAT 94–99
[2017-08-02] MEDS: ceFAZolin 2 GM PREMIX 50 ML IV SCH ×2 (04:28→12:23)
--- NOTE | 2017-08-02 06:43 | PD.ORT.PN ---
Subjective Subjective Remarks POD 6 s/p IMN right tibia POD 2 s/p ORIF left proximal tibia with I&D and vac application of lower leg wound reports that pain is slightly better Objective Vitals Vital Signs Date Time Temp Pulse Resp B/P (MAP) Pulse Ox O2 Delivery O2 Flow Rate FiO2 08/02/17 04:24 97.0 97 16 129/60 (83) 99 08/02/17 03:48 Room Air 08/02/17 00:35 98.0 98 16 133/63 (86) 99 08/02/17 00:05 18 08/01/17 19:17 98.6 101 15 146/57 (86) 90 08/01/17 17:24 99.0 99 16 153/61 (91) 94 08/01/17 12:00 98.9 98 17 112/56 (74) 96 08/01/17 08:00 98.4 100 18 134/70 (91) 97 I/O 08/01/17 08/01/17 08/01/17 08/02/17 08/02/17 08/02/17 07:00 15:00 23:00 07:00 15:00 23:00 Intake Total 1222 ml 480 ml 120 ml 100 ml Output Total 175 ml 450 ml 0 ml Balance 1047 ml 480 ml -330 ml 100 ml Intake Oral 120 ml 480 ml 120 ml IV Total 1102 ml 100 ml Output Urine Total 175 ml 450 ml Drainage Total 0 ml 0 ml 0 ml # Voids 0 # Bowel Movements 0 0 0 Result Diagram: 08/01/17 0526 08/01/17 05 Imaging Last 24 hours Impressions Pelvis X-Ray 07/26/171951 Signed Impressions: Service Date/Time: July 19:27 - CONCLUSION: Unremarkable examination of the pelvis. Nikolas Andrews MD Head CT 07/26/171951 Signed Impressions: Service Date/Time: July 19:51 - CONCLUSION: 1. No acute intracranial abnormalities. Nikolas Andrews MD Chest X-Ray 07/26/171951 Signed Impressions: Service Date/Time: July 19:27 - CONCLUSION: No acute disease. Nikolas Andrews MD Chest CT 07/26/171951 Signed Impressions: Service Date/Time: July 19:57 - CONCLUSION: 1. Negative for acute traumatic injury within the thorax. 2. 10 mm and 7 mm nodules in the right lower lobe posteriorly, indeterminate for malignancy. These should be followed with PET CT as an outpatient. Nikolas Andrews MD Abdomen/Pelvis CT 07/26/171951 Signed Impressions: Service Date/Time: July 19:55 - CONCLUSION: 1. Negative for acute traumatic injury within the abdomen. 2. Soft tissue contusion anterior abdominal wall. 3. 3 cm abdominal aortic aneurysm without rupture. 4. 4.5 cm right adnexal cyst. Nikolas Andrews MD Objective Remarks Laying in bed NAD Left leg dressings clean and dry. knee brace in place. wound vac in place with good seal Sensation normal. EHL 5/5. Cap refill less than 2 secs Right leg Short leg splint intact, mild swelling toes Sensation distally normal. EHL 5/5. Cap refill less than 2 secs Assessment & Plan Assessment and Plan 1) Right Distal Tibial Shaft Fx s/p IMN - POD 6 2) Left Proximal Tibia Fx s/p ORIF - POD 2 NWB BLE Maintain splint on RLE at all times Knee brace on Left knee at all times except for PT maintain vac on left leg at all times. 100mmHg, 3:1 PROM of left knee 0-90,. no quad sets or leg lifts CM for SNF placement f/u with [facility] in 2 weeks Jesus Guardado Aug 02, 2017 06:43
[2017-08-02] MEDS ORDERED: BISACODYL 10 MG SUPP RECTAL ONE (07:30)
[2017-08-02] MEDS ORDERED: BISACODYL EC 5 MG TABEC PO ONE (07:30)
[2017-08-02] MEDS: ACETAMINOPHEN/HYDROcodone 325 MG/5 MG TAB PO PRN ×4 (07:49→20:33)
[2017-08-02] MEDS: DOCUSATE SODIUM 50 MG/SENNA 8.6 MG TAB PO SCH ×2 (07:50→20:33)
[2017-08-02] MEDS: predniSONE 1 MG TAB PO SCH (07:50)
[2017-08-02] MEDS: FAMOTIDINE 20 MG TAB PO SCH ×2 (07:52→20:33)
[2017-08-02] MEDS: METOPROLOL SUCCINATE 25 MG EXTENDED RELEASE TAB PO SCH (07:52)
[2017-08-02] MEDS: CHOLECALCIFEROL (VIT D3) 1000 UNIT TAB PO SCH (07:53)
[2017-08-02] MEDS: SODIUM CHLORIDE 0.9% FLUSH 5 ML FLUSH IVF SCH ×4 (07:57→20:34)
[2017-08-02] MEDS: BACITRACIN TOP OINT 15 GM TUBE TOPICAL SCH ×2 (07:57→20:34)
[2017-08-02] MEDS: POLYETHYLENE GLYCOL 17 GM PKG PO SCH ×2 (07:57→15:47)
[2017-08-02] MEDS: LACTULOSE SYRUP 20 GM/30 ML CUP PO SCH (07:57)
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
[2017-08-02] MEDS: ENOXAPARIN SODIUM 30 MG/0.3 ML SYRINGE SQ SCH (12:23)
[2017-08-02] MEDS ORDERED: Lactulose Liq PO (19:00)
[2017-08-02] MEDS ORDERED: METO25TA6 PO (19:00)
[2017-08-02] MEDS ORDERED: SENN1TAB PO (19:00)
[2017-08-02] MEDS ORDERED: POLY17S PO (19:00)
[2017-08-02] MEDS ORDERED: GNP8.6TA PO (19:00)
[2017-08-02] MEDS ORDERED: GNP5TAB6 PO (19:00)
[2017-08-02] MEDS ORDERED: MAGN400S PO (19:00)
[2017-08-02] MEDS ORDERED: ENOX30P SQ (19:00)
[2017-08-02] MEDS ORDERED: FAMO20TA2 PO (19:00)
[2017-08-02] MEDS ORDERED: TRAZ50TA12 PO (19:00)
[2017-08-02] MEDS ORDERED: PRED1 PO (19:00)
[2017-08-02] MEDS: traZODone HCL 50 MG TAB PO SCH (20:33)
[2017-08-02] MEDS: MAGNESIUM HYDROXIDE SUSP 30 ML CUP PO SCH (20:33)
[2017-08-02] MEDS: MELATONIN 5 MG TAB PO SCH (20:33)
[2017-08-03] VITALS: BP 122/68; PULSE 89; RESP 16; TEMP 98.6; O2SAT 96
[2017-08-03 04:00] VITALS: BP 146/61; PULSE 96; RESP 16; TEMP 98.8; O2SAT 95
[2017-08-03] MEDS ORDERED: MORPHINE SULFATE 2 MG/ML INJ IM PRN (06:45)
--- NOTE | 2017-08-03 07:01 | PD.ORT.PN ---
Subjective Subjective Remarks POD 7 s/p IMN right tibia POD 3 s/p ORIF left proximal tibia with I&D and vac application of lower leg wound reports that pain is slightly better Objective Vitals Vital Signs Date Time Temp Pulse Resp B/P (MAP) Pulse Ox O2 Delivery O2 Flow Rate FiO2 08/03/17 04:00 98.8 96 16 146/61 (89) 95 08/03/17 00:00 98.6 89 16 122/68 (86) 96 08/02/17 19:37 100.2 98 16 129/59 (82) 94 08/02/17 14:58 99.3 98 18 129/59 (82) 94 08/02/17 12:00 98.9 91 18 134/61 (85) 97 08/02/17 10:15 97 Nasal Cannula 2.00 08/02/17 08:00 99.0 98 18 162/69 (100) 99 I/O 08/02/17 08/02/17 08/02/17 08/03/17 08/03/17 08/03/17 07:00 15:00 23:00 07:00 15:00 23:00 Intake Total 220 ml 480 ml 480 ml 480 ml Output Total 400 ml 375 ml 0 ml 600 ml Balance -180 ml 105 ml 480 ml -120 ml Intake Oral 120 ml 480 ml 480 ml 480 ml IV Total 100 ml Output Urine Total 400 ml 375 ml 600 ml Drainage Total 0 ml 0 ml 0 ml # Voids 3 # Bowel Movements 0 0 0 2 Result Diagram: 08/01/1752508/01/17525 Imaging Last 24 hours Impressions Pelvis X-Ray 07/26/171951 Signed Impressions: Service Date/Time: July 19:27 - CONCLUSION: Unremarkable examination of the pelvis. Nikolas Andrews MD Head CT 07/26/171951 Signed Impressions: Service Date/Time: July 19:51 - CONCLUSION: 1. No acute intracranial abnormalities. Nikolas Andrews MD Chest X-Ray 07/26/171951 Signed Impressions: Service Date/Time: July 19:27 - CONCLUSION: No acute disease. Nikolas Andrews MD Chest CT 07/26/171951 Signed Impressions: Service Date/Time: July 19:57 - CONCLUSION: 1. Negative for acute traumatic injury within the thorax. 2. 10 mm and 7 mm nodules in the right lower lobe posteriorly, indeterminate for malignancy. These should be followed with PET CT as an outpatient. Nikolas Andrews MD Abdomen/Pelvis CT 07/26/171951 Signed Impressions: Service Date/Time: July 19:55 - CONCLUSION: 1. Negative for acute traumatic injury within the abdomen. 2. Soft tissue contusion anterior abdominal wall. 3. 3 cm abdominal aortic aneurysm without rupture. 4. 4.5 cm right adnexal cyst. Nikolas Andrews MD Objective Remarks Laying in bed NAD Left leg dressings clean and dry. knee brace in place. wound vac in place with good seal Sensation normal. EHL 5/5. Cap refill less than 2 secs. vac removed. wound visualized. clean and dry. healing well. Right leg Short leg splint intact, mild swelling toes Sensation distally normal. EHL 5/5. Cap refill less than 2 secs Assessment & Plan Assessment and Plan 1) Right Distal Tibial Shaft Fx s/p IMN - POD 7 2) Left Proximal Tibia Fx s/p ORIF - POD 3 NWB BLE Maintain splint on RLE at all times Knee brace on Left knee at all times except for PT Vac DCd at bedside today. begin daily dressing changes of traumatic wound with bacitracin/adaptik/4x4/sylvie PROM of left knee 0-90,. no quad sets or leg lifts CM for SNF placement ortho cleared for DC to SNF today f/u with Nick or AMERICA in 2 weeks Jesus Guardado Aug 03, 2017 07:01
[2017-08-03 08:00] VITALS: BP 151/57; PULSE 102; RESP 17; TEMP 99; O2SAT 94
[2017-08-03] MEDS ORDERED: BACITRACIN TOP OINT 15 GM TUBE TOPICAL SCH (09:00)
[2017-08-03] MEDS: BACITRACIN TOP OINT 15 GM TUBE TOPICAL SCH (09:00)
[2017-08-03] MEDS: SODIUM CHLORIDE 0.9% FLUSH 5 ML FLUSH IVF SCH ×2 (09:00)
[2017-08-03] MEDS: LACTULOSE SYRUP 20 GM/30 ML CUP PO SCH (10:04)
[2017-08-03] MEDS: FAMOTIDINE 20 MG TAB PO SCH (10:05)
[2017-08-03] MEDS: POLYETHYLENE GLYCOL 17 GM PKG PO SCH (10:05)
[2017-08-03] MEDS: predniSONE 1 MG TAB PO SCH (10:05)
[2017-08-03] MEDS: METOPROLOL SUCCINATE 25 MG EXTENDED RELEASE TAB PO SCH (10:06)
[2017-08-03] MEDS: DOCUSATE SODIUM 50 MG/SENNA 8.6 MG TAB PO SCH (10:06)
[2017-08-03] MEDS: CHOLECALCIFEROL (VIT D3) 1000 UNIT TAB PO SCH (10:06)
[2017-08-03] MEDS: ACETAMINOPHEN/HYDROcodone 325 MG/5 MG TAB PO PRN ×2 (10:08→14:46)
[2017-08-03 12:00] VITALS: BP 120/53; PULSE 93; RESP 18; TEMP 99.8; O2SAT 95
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
[2017-08-03] MEDS: ENOXAPARIN SODIUM 30 MG/0.3 ML SYRINGE SQ SCH (14:29)
[2017-08-03] MEDS ORDERED: MORPHINE SULFATE 2 MG/ML INJ IV PUSH ONE (15:20)
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
== END 2017-08-03 15:21 | DRG 493 ==
LOC: NEPI 19:34 → EDBD 20:27 → NEDA 20:27 → N03B 20:35 → N06A 07-28 11:47
PROVIDERS: ADMIT Surgery Trauma Surgery; ATTEND Surgery Trauma Surgery
PROC: 0QSJXZZ Reposition Right Fibula, External Approach (ICD-10-PCS; 2017-07-26)
PROC: 0QSGXZZ Reposition Right Tibia, External Approach (ICD-10-PCS; 2017-07-26)
PROC: 0QSG06Z Reposition Right Tibia with Intramedullary Internal Fixation Device, Open Approach (ICD-10-PCS; 2017-07-27)
PROC: 0HQLXZZ Repair Left Lower Leg Skin, External Approach (ICD-10-PCS; 2017-07-27)
PROC: 0QSH35Z Reposition Left Tibia with External Fixation Device, Percutaneous Approach (ICD-10-PCS; principal; 2017-07-27 11:46)
PROC: 0QSH04Z Reposition Left Tibia with Internal Fixation Device, Open Approach (ICD-10-PCS; 2017-07-31)
PROC: 0QPHX5Z Removal of External Fixation Device from Left Tibia, External Approach (ICD-10-PCS; 2017-07-31)
DX: S82.142B Displaced bicondylar fracture of left tibia, initial encounter for open fracture type I or II (principal); J98.11 Atelectasis; J44.9 Chronic obstructive pulmonary disease, unspecified; M06.9 Rheumatoid arthritis, unspecified; S82.301A Unspecified fracture of lower end of right tibia, initial encounter for closed fracture; E55.9 Vitamin D deficiency, unspecified; D72.829 Elevated white blood cell count, unspecified; I10 Essential (primary) hypertension; S82.451A Displaced comminuted fracture of shaft of right fibula, initial encounter for closed fracture; S82.832B Other fracture of upper and lower end of left fibula, initial encounter for open fracture type I or II; S20.219A Contusion of unspecified front wall of thorax, initial encounter; S30.1XXA Contusion of abdominal wall, initial encounter; R50.82 Postprocedural fever; I71.4 Abdominal aortic aneurysm, without rupture; R91.1 Solitary pulmonary nodule; G47.00 Insomnia, unspecified; V43.62XA Car passenger injured in collision with other type car in traffic accident, initial encounter; Y92.410 Unspecified street and highway as the place of occurrence of the external cause; Z87.891 Personal history of nicotine dependence
CPT/HCPCS: 36430; 70450; 71010; 71260; 72125; 72170; 73560; 73590; 73700; 74177; 76000; 80048; 80053; 81001; 82435; 82565; 82947; 84132; 84295; 84520; 85014; 85018; 85025; 85610; 85730; 86850; 86900; 86901; 86920; 87641; 93005; 93306; 94150; 94640; 94664; 94667; 94668; 94770; A0431-QM-SH; A0436-QM-SH; J0131; J0690; J1170; J1580; J1644; J1650; J2250; J2270; J2405; J3010; J3370; J7030; J7050; J7120; J7512; L1830; P9016; Q9967

== ENCOUNTER 2017-09-04 05:30 | Inpatient (IN) | payer OTHER, MEDICARE ==
[~2017-09-04] VITALS: Ht 162.6 cm; Wt 58.5 kg
[~2017-09-04 05:30] MED LIST: CALCTAB19 PO; ENOX30P SQ; FAMO20TA2 PO; GNP8.6TA PO; HYDR-3580 PO; Lactulose Liq PO; MAGN400S PO; MELA1TAB31 PO; METO1TAB42 PO; POLY17S PO; PRED1 PO; SENN1TAB PO; TRAZ50TA12 PO; VITA2000 PO; VITA500012 PO; WHEEMIS3; XARE10TA PO
[2017-09-04] MEDS ORDERED: METOPROLOL TARTRATE 25 MG TAB PO PRN (06:00)
[2017-09-04] MEDS ORDERED: CHLORHEXIDINE GLUCONATE 2 % 1 PACK (2 CLOTHS) TOPICAL PRN (06:00)
[2017-09-04] MEDS ORDERED: CHLORHEXIDINE GLUCONATE 4% SOLN 120 ML BTL TOPICAL SCH (06:00)
[2017-09-04] MEDS ORDERED: SODIUM CHLORID 0.9% 500 ML IV PRN (06:00)
[2017-09-04] MEDS ORDERED: LACTATED RINGER'S 1000 ML IV PRN (06:00)
[2017-09-04] MEDS ORDERED: POVIDONE IODINE 5% (ANTISEPSIS KIT) 4 APPLICATIONS EACH NARE PRN (06:00)
[2017-09-04] MEDS ORDERED: GENTAMICIN SULFATE 80 MG/2 ML VIAL ONE (06:52)
[2017-09-04] MEDS ORDERED: SODIUM CHLOR 0.9% 250 ML INJ 250 ML ONE (06:52)
[2017-09-04] MEDS ORDERED: VANCOMYCIN HCL 1000 MG VIAL ONE (06:52)
[2017-09-04] MEDS ORDERED: ceFAZolin INJ 1,000 MG VIAL ONE (06:52)
[2017-09-04 08:05] LABS: APTT (PATIENT) 23.3 SEC (24.3-30.1); PROTHROMBIN TIME - PATIENT 10.9 SEC (9.8-11.6)
[2017-09-04] MEDS ORDERED: SENNOSIDES 8.6 MG TAB PO PRN ×2 (08:45)
[2017-09-04] MEDS ORDERED: LACTULOSE SYRUP 20 GM/30 ML CUP PO PRN (08:45)
[2017-09-04] MEDS ORDERED: diphenhydrAMINE HCL 25 MG CAP PO PRN (08:45)
[2017-09-04] MEDS ORDERED: SODIUM CHLORIDE 0.9% FLUSH 10 ML FLUSH IV FLUSH PRN (08:45)
[2017-09-04] MEDS ORDERED: ONDANSETRON HCL 4 MG/2 ML VIAL IVP PRN (08:45)
[2017-09-04] MEDS ORDERED: traZODone HCL 50 MG TAB PO PRN (08:45)
[2017-09-04] MEDS ORDERED: HYDR-3288 PO (08:46)
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
[2017-09-04] MEDS: METOPROLOL SUCCINATE 25 MG EXTENDED RELEASE TAB PO SCH (09:00)
[2017-09-04] MEDS ORDERED: MORPHINE SULFATE 2 MG/ML INJ IV PUSH PRN (09:00)
[2017-09-04] MEDS: POLYETHYLENE GLYCOL 17 GM PKG PO SCH (09:00)
[2017-09-04] MEDS: CALCIUM/VITAMIN D 250 MG/125 U TAB PO SCH ×2 (09:00→21:00)
[2017-09-04] MEDS: FAMOTIDINE 20 MG TAB PO SCH ×2 (09:00→21:00)
[2017-09-04] MEDS: CHOLECALCIFEROL (VIT D3) 1000 UNIT TAB PO SCH (09:00)
[2017-09-04] MEDS: SODIUM CHLORIDE 0.9% FLUSH 10 ML FLUSH IV FLUSH SCH ×2 (09:00→21:00)
[2017-09-04] MEDS ORDERED: DO NOT ADM ANY ANTICOAGULANT DRUGS PRN (09:12)
[2017-09-04] MEDS: LACTATED RINGER'S 1000 ML INJ 1,000 ML IV SCH ×2 (09:29→17:07)
[2017-09-04] MEDS ORDERED: *morphine SULFATE 8 MG/ML PERIprocedure ONLY ONE (09:40)
[2017-09-04] MEDS ORDERED: DIMETHICONE/OXYBENZONE/PADMIATE LIP BALM 4.25 GM TOPICAL ONE (09:41)
[2017-09-04] MEDS ORDERED: Post-op Orders (for Pharmacy) MISC XX ONE (10:00)
[2017-09-04 11:00] VITALS: BP 143/60; PULSE 64; RESP 16; TEMP 96.7; O2SAT 100
[2017-09-04] MEDS ORDERED: DIMETHICONE/OXYBENZONE/PADMIATE LIP BALM 4.25 GM TOPICAL PRN (12:00)
[2017-09-04 13:33] LABS: HEMATOCRIT 34.1 % (35.0-46.0); MEAN CELL VOLUME 93.6 FL (80.0-100.0); PLATELET COUNT 253 TH/MM3 (150-450); RED BLOOD COUNT 3.64 MIL/MM3 (4.00-5.30); RED CELL DISTRIBUTION WIDTH 16.6 % (11.6-17.2); REVIEW FLAG FINAL; WHITE BLOOD COUNT 9.3 TH/MM3 (4.0-11.0)
[2017-09-04 16:00] VITALS: BP 128/61; PULSE 77; RESP 16; TEMP 100; O2SAT 97
[2017-09-04] MEDS: GENTAMICIN 80 MG PREMIX 100 ML IV SCH (17:07)
[2017-09-04] MEDS: ceFAZolin 2 GM PREMIX 50 ML IV SCH (17:07)
[2017-09-04] MEDS: ACETAMINOPHEN/HYDROcodone 325 MG/7.5 MG TAB PO PRN (18:40)
[2017-09-04 19:52] VITALS: O2SAT 97
[2017-09-04] MEDS: RIVAROXABAN 10 MG TAB PO SCH ×2 (21:00→21:30)
[2017-09-04] MEDS: MAGNESIUM HYDROXIDE SUSP 30 ML CUP PO SCH (21:00)
[2017-09-04 21:10] VITALS: BP 127/57; PULSE 88; RESP 19; TEMP 98.5; O2SAT 98
[2017-09-05] VITALS (7 sets, daily range): BP systolic 113–138; BP diastolic 41–84; PULSE 79–87; RESP 16–20; TEMP 97.8–100.2; O2SAT 96–100
[2017-09-05] MEDS: GENTAMICIN 80 MG PREMIX 100 ML IV SCH ×3 (02:00→17:55)
[2017-09-05] MEDS: LACTATED RINGER'S 1000 ML INJ 1,000 ML IV SCH ×2 (04:53→15:00)
--- NOTE | 2017-09-05 06:50 | PD.ORT.PN ---
Subjective Subjective Remarks POD 1 s/p I&D with incision vac application left tibial plateau s/p ORIF left tibial plateau s/p IMN right tibia doing well. pain controlled. no complaints. Objective Vitals Vital Signs Date Time Temp Pulse Resp B/P (MAP) Pulse Ox O2 Delivery O2 Flow Rate FiO2 09/05/17 04:04 98.7 82 20 138/64 (88) 96 09/05/17 00:47 97.8 86 18 122/84 (97) 97 09/04/17 21:10 98.5 88 19 127/57 (80) 98 09/04/17 19:52 97 09/04/17 16:00 100.0 77 16 128/61 (83) 97 09/04/17 11:00 96.7 64 16 143/60 (87) 100 09/04/17 10:15 97.8 66 18 124/61 (82) 100 Nasal Cannula 2 09/04/17 10:00 62 18 133/59 (83) 100 Nasal Cannula 2 09/04/17 09:45 67 18 143/67 (92) 100 Nasal Cannula 2 09/04/17 09:30 67 18 130/60 (83) 99 Nasal Cannula 2 09/04/17 09:15 68 16 156/70 (98) 99 Nasal Cannula 2 09/04/17 09:11 97.7 67 16 148/65 (92) 99 Nasal Cannula 2 I/O 09/04/17 09/04/17 09/04/17 09/05/17 09/05/17 09/05/17 07:00 15:00 23:00 07:00 15:00 23:00 Intake Total 600 ml 480 ml Output Total 50 ml 0 ml 800 ml Balance 550 ml 0 ml -320 ml Intake Oral 480 ml Other 600 ml Output Urine Total 800 ml Drainage Total 0 ml Estimated Blood Loss 50 ml # Voids 2 Result Diagram: 09/04/17721 Other Results Laboratory Tests Test 09/04/17 07:22 Prothromb Time International Ratio 1.0 RATIO Prothrombin Time 10.9 SEC (9.8-11.6) Objective Remarks LLE: dressings clean and dry. intact. NVI. neg ole. +ROM brace locked at 0. + vac. good seal. RLE: +fracture boot. NVI Assessment & Plan Assessment and Plan 1) Left Tibial Plateau fx s/p ORIF with subsequent wound complication with I&D and vac application - POD 1 -NWB -brace locked at 0. no ROM of knee. no quad sets or leg lifts -maintain vac til sunday -DC vac on sunday and DC to rehab at that point -vac settings: 100mmHg, low, 3:1 -3008 on chart -Rx on chart -cultures need to be checked. if cx positive, needs Infectious Dz consult with 6-8 weeks of IV Abx. -f/u with [facility] or [facility] in 2 weeks 2) Right Distal Tibial Shaft Fx s/p IMN -NWB -PT to work on ROM of ankle Jesus Guardado/Executive Consultant PA Sep 05, 2017 06:50
[2017-09-05] MEDS: ceFAZolin 2 GM PREMIX 50 ML IV SCH ×3 (07:50→15:16)
[2017-09-05] MEDS: CALCIUM/VITAMIN D 250 MG/125 U TAB PO SCH ×2 (07:51→21:37)
[2017-09-05] MEDS: METOPROLOL SUCCINATE 25 MG EXTENDED RELEASE TAB PO SCH (07:51)
[2017-09-05] MEDS: CHOLECALCIFEROL (VIT D3) 1000 UNIT TAB PO SCH (07:51)
[2017-09-05] MEDS: SODIUM CHLORIDE 0.9% FLUSH 10 ML FLUSH IV FLUSH SCH ×2 (07:52→21:00)
[2017-09-05] MEDS: FAMOTIDINE 20 MG TAB PO SCH ×2 (07:52→21:37)
[2017-09-05] MEDS: POLYETHYLENE GLYCOL 17 GM PKG PO SCH (07:52)
[2017-09-05] MEDS: ACETAMINOPHEN/HYDROcodone 325 MG/7.5 MG TAB PO PRN (21:36)
[2017-09-05] MEDS: MAGNESIUM HYDROXIDE SUSP 30 ML CUP PO SCH (21:37)
[2017-09-05] MEDS: RIVAROXABAN 10 MG TAB PO SCH (21:37)
[2017-09-06] VITALS (7 sets, daily range): BP systolic 92–147; BP diastolic 48–62; PULSE 81–83; RESP 16–18; TEMP 97–98.5; O2SAT 94–99
[2017-09-06] MEDS: LACTATED RINGER'S 1000 ML INJ 1,000 ML IV SCH ×3 (01:00→20:29)
[2017-09-06] MEDS: GENTAMICIN 80 MG PREMIX 100 ML IV SCH ×2 (01:25→10:27)
[2017-09-06] MEDS: POLYETHYLENE GLYCOL 17 GM PKG PO SCH (09:00)
[2017-09-06] MEDS: METOPROLOL SUCCINATE 25 MG EXTENDED RELEASE TAB PO SCH (09:00)
[2017-09-06] MEDS: SODIUM CHLORIDE 0.9% FLUSH 10 ML FLUSH IV FLUSH SCH ×2 (09:00→20:22)
[2017-09-06] MEDS: FAMOTIDINE 20 MG TAB PO SCH ×2 (09:14→20:21)
[2017-09-06] MEDS: CALCIUM/VITAMIN D 250 MG/125 U TAB PO SCH ×2 (09:15→20:21)
[2017-09-06] MEDS: CHOLECALCIFEROL (VIT D3) 1000 UNIT TAB PO SCH (09:15)
[2017-09-06] MEDS: ACETAMINOPHEN/HYDROcodone 325 MG/7.5 MG TAB PO PRN ×2 (09:21→22:18)
[2017-09-06] MEDS: ceFAZolin 2 GM PREMIX 50 ML IV SCH ×4 (09:22→22:18)
--- NOTE | 2017-09-06 10:09 | PD.ORT.PN ---
Subjective Subjective Remarks no CP/SOB. no issues. Participating in PT Objective Vitals Vital Signs Date Time Temp Pulse Resp B/P (MAP) Pulse Ox O2 Delivery O2 Flow Rate FiO2 09/06/17 00:05 97.0 83 16 147/62 (90) 97 09/05/17 20:05 99.6 84 16 136/65 (88) 97 09/05/17 16:00 100.2 80 18 113/41 (65) 98 09/05/17 12:00 99.6 79 18 138/62 (87) 100 I/O 09/05/17 09/05/17 09/05/17 09/06/17 09/06/17 09/06/17 07:00 15:00 23:00 07:00 15:00 23:00 Intake Total 480 ml 720 ml 240 ml 240 ml Output Total 800 ml 0 ml 0 ml Balance -320 ml 720 ml 240 ml 240 ml Intake Oral 480 ml 720 ml 240 ml 240 ml Output Urine Total 800 ml Drainage Total 0 ml 0 ml # Voids 5 2 3 # Bowel Movements 0 2 Result Diagram: 09/04/17721 Objective Remarks LLE: dressings clean and dry. intact. NVI. neg ole. +ROM brace locked at 0. + vac. good seal. RLE: +fracture boot. NVI Assessment & Plan Assessment and Plan 1) Left Tibial Plateau fx s/p ORIF with subsequent wound complication with I&D and vac application - POD 2 -NWB -brace locked at 0. no ROM of knee. no quad sets or leg lifts -maintain vac til sunday -DC vac on sunday and DC to rehab at that point -vac settings: 100mmHg, low, 3:1 -3008 on chart -Rx on chart -cultures + gram neg rods. ID consulted -f/u with [facility] or [facility] in 2 weeks 2) Right Distal Tibial Shaft Fx s/p IMN -NWB -PT to work on ROM of ankle Abhinav Lazaro Jr., MD Sep 06, 2017 10:09
--- NOTE | 2017-09-06 15:52 | PD.ID.CON ---
History of Present Illness Consult Requested By Primary Care Physician Non-Staff Diagnoses: Past Family Social History Allergies: Coded Allergies: Fish Containing Products (Verified Allergy, Unknown, 09/04/17) egg (Verified Allergy, Unknown, 09/04/17) Physical Exam Vital Signs Vital Signs Date Time Temp Pulse Resp B/P (MAP) Pulse Ox O2 Delivery O2 Flow Rate FiO2 09/06/17 12:00 97.6 81 17 93/50 (64) 98 09/06/17 09:55 94 21 09/06/17 08:00 98.5 81 17 92/51 (65) 97 09/06/17 00:05 97.0 83 16 147/62 (90) 97 09/05/17 20:05 99.6 84 16 136/65 (88) 97 09/05/17 16:00 100.2 80 18 113/41 (65) 98 Physical Exam GENERAL: This is a well-nourished, well-developed patient, in no apparent distress. SKIN: No rashes, ecchymoses or lesions. Cool and dry. HEAD: Atraumatic. Normocephalic. No temporal or scalp tenderness. EYES: Pupils equal round and reactive. Extraocular motions intact. No scleral icterus. No injection or drainage. ENT: Nose without bleeding, purulent drainage or septal hematoma. Throat without erythema, tonsillar hypertrophy or exudate. Uvula midline. Airway patent. NECK: Trachea midline. No JVD or lymphadenopathy. Supple, nontender, no meningeal signs. CARDIOVASCULAR: Regular rate and rhythm without murmurs, gallops, or rubs. RESPIRATORY: Clear to auscultation. Breath sounds equal bilaterally. No wheezes , rales, or rhonchi. GASTROINTESTINAL: Abdomen soft, non-tender, nondistended. No hepato-splenomegaly , or palpable masses. No guarding. MUSCULOSKELETAL: Extremities without clubbing, cyanosis, or edema. No joint tenderness, effusion, or edema noted. No calf tenderness. Negative Homans sign bilaterally. NEUROLOGICAL: Awake and alert. Cranial nerves II through XII intact. Motor and sensory grossly within normal limits. Five out of 5 muscle strength in all muscle groups. Normal speech. Laboratory Date/Time Source Procedure Growth Status 09/04/17 09:15 Wound Leg Fungal Smear - Final NO FUNGAL ELEMENTS SEEN. Resulted 09/04/17 09:15 Wound Leg Fungal Culture Pending Resulted Result Diagram: 09/04/17 0722 Linda Moreau MD Sep 06, 2017 15:52
[2017-09-06 16:27] LABS: AUTOMATED NEUTROPHIL # 5.5 TH/MM3 (1.8-7.7); BASOPHIL % 0.3 % (0.0-2.0); EOSINOPHIL # 0.4 TH/MM3 (0-0.4); EOSINOPHIL % 4.8 % (0.0-4.0); HEMATOCRIT 32.2 % (35.0-46.0); HEMO FLAGS DIFF FINAL; LYMPH % 27.1 % (9.0-44.0); LYMPHOCYTE # 2.5 TH/MM3 (1.0-4.8); MEAN CELL VOLUME 93.1 FL (80.0-100.0); MEAN CORPUSCULAR HEMOGLOBIN 30.9 PG (27.0-34.0); MEAN CORPUSCULAR HGB CONC 33.2 % (32.0-36.0); MONO % 7.4 % (0.0-8.0); NEUT % 60.4 % (16.0-70.0); PLATELET COUNT 236 TH/MM3 (150-450); RED BLOOD COUNT 3.46 MIL/MM3 (4.00-5.30); RED CELL DISTRIBUTION WIDTH 16.2 % (11.6-17.2); WHITE BLOOD COUNT 9.1 TH/MM3 (4.0-11.0)
[2017-09-06 16:29] LABS: ANION GAP 4 MEQ/L (5-15); AST (GOT) 14 U/L (15-37); BICARBONATE 31.5 MEQ/L (21.0-32.0); BLOOD UREA NITROGEN 15 MG/DL (7-18); CHLORIDE 105 MEQ/L (98-107); GLOMERULAR FILTRATION RATE 76 ML/MIN (>89); POTASSIUM 3.7 MEQ/L (3.5-5.1); SODIUM (NA) 140 MEQ/L (136-145)
[2017-09-06 16:30] LABS: ALT (GPT) 7 U/L (10-53)
[2017-09-06 16:32] LABS: ALKALINE PHOSPHATASE 92 U/L (45-117); TOTAL BILIRUBIN ADULT 0.2 MG/DL (0.2-1.0)
[2017-09-06] MEDS: cefTRIAXone INJ 2,000 MG in SODIUM CHLORIDE 0.9% INJ 100 ML IV SCH (17:39)
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
--- NOTE | 2017-09-06 19:05 | HHI.FF ---
cc: Gayle Sharpe MD Infusion Therapy Location of Infusion Therapy: [facility] Infusion Therapy Order Patient Information Appointment Date: Sep 07, 2017 Patient Weight 58.5 kg Diagnosis: Diagnosis Left tibial hardware infection/osteomyelitis. Enterobacter cloacae infection Coded Allergies: Fish Containing Products (Verified Allergy, Unknown, 09/04/17) egg (Verified Allergy, Unknown, 09/04/17) Administer Medication Ceftriaxone 2 grams IV q 24 hours Start Treatment: Sep 07, 2017 Stop Treatment: Oct 18, 2017 Additional Information Additional Medications Cipro 500 mg po bid for 2 weeks. Venous access: PICC Line Additional Instructions [x] Peripheral flush and dressing changes per protocol [x] Implanted port and central business line manager: * Implanted port: 10 ml Normal Saline followed by 5 ml Heparin 100 units/ml Heparin flush after each use and monthly to maintain. [] May leave port accessed during therapy. [] May leave peripheral site accessed for duration of therapy. [x] If patient has SOB or respiratory distress, check oxygen saturation. If less than 90% or clinical signs of respiratory distress, administer oxygen at 2 L/min. via nasal cannula and notify physician. [x] Anaphylaxis/Reaction orders: * Stop infusion. * Keep IV line open with saline flush. * Notify physician. * Monitor vital signs every 15 minutes until symptoms resolve. * Check Oxygen saturation; Oxygen at 2 L/min. via nasal cannula if less than 90% or clinical signs of respiratory distress. * Administer diphenhydramine (Benadryl) 25 mg IV STAT, (unless patient has received as pre-med). May repeat once, if necessary. * Solu-Cortef 250 mg IVP over 30-60 seconds, use 100 mg vials for each dissolution. * Epinephrine (1mg/1 ml) 0.3 mg subcutaneously or IVP now with any signs of respiratory distress. * Check with physician for new additional pre-med orders if patient is re- challenged or re-treated. [x] May remove PICC line when treatment complete, after confirming with Physician. [x] If the patient is admitted to the hospital, the ED, or transferred via [facility] , complete transfer form including medication reconciliation order sheet. Laboratory Tests Weekly Labs: CBC w/diff, Creatinine, CRP, LFT's (Hepatic function test) Additional Information Please draw weekly labs, Call with abnormal labs, clinical problems or change in clinical condition: Dr.Reba Sharpe or or covering ID Physician Follow up appt: Patient family or SNF to schedule follow up appt with Dr.Reba Sharpe within 2 weeks post discharge. Follow up with PCP Follow up with other MDs as planned. Counseling: Counseled about medication side effects Counseled about PICC line care and hand hygiene. Counseled about Cdiff from antibiotics Counseled about tendon injury from Cipro. Linda Moreau MD Sep 06, 2017 19:05
[2017-09-06] MEDS ORDERED: CEFT1INJ5 IV (19:11)
[2017-09-06] MEDS ORDERED: SOLU250I IV PUSH (19:11)
[2017-09-06] MEDS ORDERED: EPIN1INJ21 SQ (19:11)
[2017-09-06] MEDS ORDERED: CIPR-9 PO (19:11)
[2017-09-06] MEDS ORDERED: EPIN1INJ21 IV PUSH (19:11)
[2017-09-06] MEDS: CIPROFLOXACIN 500 MG TAB PO SCH (20:21)
[2017-09-06] MEDS: MAGNESIUM HYDROXIDE SUSP 30 ML CUP PO SCH (20:21)
[2017-09-06] MEDS: RIVAROXABAN 10 MG TAB PO SCH (20:21)
[2017-09-07] VITALS: BP 120/50; PULSE 81; RESP 16; TEMP 98.2; O2SAT 99
[2017-09-07] MEDS: LACTATED RINGER'S 1000 ML INJ 1,000 ML IV SCH (04:27)
[2017-09-07] MEDS: CIPROFLOXACIN 500 MG TAB PO SCH (07:36)
[2017-09-07] MEDS: CALCIUM/VITAMIN D 250 MG/125 U TAB PO SCH (07:36)
[2017-09-07] MEDS: FAMOTIDINE 20 MG TAB PO SCH (07:37)
[2017-09-07] MEDS: METOPROLOL SUCCINATE 25 MG EXTENDED RELEASE TAB PO SCH (07:37)
[2017-09-07] MEDS: POLYETHYLENE GLYCOL 17 GM PKG PO SCH (07:37)
[2017-09-07] MEDS: CHOLECALCIFEROL (VIT D3) 1000 UNIT TAB PO SCH (07:37)
[2017-09-07] MEDS: SODIUM CHLORIDE 0.9% FLUSH 10 ML FLUSH IV FLUSH SCH (07:38)
[2017-09-07] MEDS: ceFAZolin 2 GM PREMIX 50 ML IV SCH (07:38)
[2017-09-07 07:55] VITALS: BP 140/50; PULSE 73; RESP 17; TEMP 98; O2SAT 99
[2017-09-07] MEDS: ACETAMINOPHEN/HYDROcodone 325 MG/7.5 MG TAB PO PRN (10:57)
[2017-09-07] MEDS ORDERED: SODIUM CHLORIDE 0.9% FLUSH 10 ML FLUSH IV FLUSH PRN (11:30)
[2017-09-07 12:00] VITALS: BP 129/57; PULSE 75; RESP 17; TEMP 97.9; O2SAT 93
--- NOTE | 2017-09-07 12:57 | RADRPT ---
EXAM DATE/TIME: 09/07/2017 12:38 [facility] COMPARISON: CHEST SINGLE AP, July 26, 2017, 19:27. INDICATIONS : Picc line placement verification. MEDICAL HISTORY : Unobtainable SURGICAL HISTORY : Unobtainable ENCOUNTER: Subsequent ACUITY: 2 days PAIN SCORE: 0/10 LOCATION: Bilateral chest FINDINGS: Interval placement of right-sided PICC line with catheter tip in the proximal to mid SVC. No new foca l pleural or parenchymal opacities. Cardiomediastinal contours are stable. Remainder of exam is uncha nged. CONCLUSION: 1. Right PICC line tip in the proximal to mid SVC. Justin Arvizu MD on September 07, 2017 at 12:54 Board Certified Radiologist. This report was verified electronically.
--- NOTE | 2017-09-07 14:53 | PD.ORT.PN ---
Subjective Subjective Remarks no CP/SOB. no issues Objective Vitals Vital Signs Date Time Temp Pulse Resp B/P (MAP) Pulse Ox O2 Delivery O2 Flow Rate FiO2 09/07/17 12:00 97.9 75 17 129/57 (81) 93 09/07/17 07:55 98.0 73 17 140/50 (80) 99 09/07/17 00:00 98.2 81 16 120/50 (73) 99 09/06/17 20:00 97.4 82 16 120/48 (72) 98 09/06/17 17:41 99 21 09/06/17 16:00 97.5 82 18 109/48 (68) 99 I/O 09/06/17 09/06/17 09/06/17 09/07/17 09/07/17 09/07/17 07:00 15:00 23:00 07:00 15:00 23:00 Intake Total 240 ml 630 ml 1028 ml 240 ml 50 ml Output Total 0 ml 0 ml 0 ml Balance 240 ml 630 ml 1028 ml 240 ml 50 ml Intake Oral 240 ml 480 ml 500 ml 240 ml IV Total 150 ml 528 ml 50 ml Drainage Total 0 ml 0 ml 0 ml # Voids 3 4 2 1 # Bowel Movements 2 1 3 Result Diagram: 09/06/17 1600 09/06/17 1600 Imaging Last 24 hours Impressions Chest X-Ray 09/07/17 0000 Signed Impressions: Service Date/Time: Thursday, September 07, 2017 12:38 - CONCLUSION: 1. Right PICC line tip in the proximal to mid SVC. Justin Arvizu MD Objective Remarks LLE: dressings clean and dry. intact. NVI. neg ole. +ROM brace locked at 0. + vac. good seal. RLE: +fracture boot. NVI Assessment & Plan Assessment and Plan 1) Left Tibial Plateau fx s/p ORIF with subsequent wound complication with I&D and vac application - POD 3 -NWB -brace locked at 0. no ROM of knee. no quad sets or leg lifts -dc vac -3008 on chart -Rx on chart -cultures + gram neg rods. ID consulted -f/u with [facility] or [facility] in 2 weeks 2) Right Distal Tibial Shaft Fx s/p IMN -NWB -PT to work on ROM of ankle DC to SNF today Abhinav Lazaro Jr., MD Sep 07, 2017 14:53
[2017-09-07] MEDS: cefTRIAXone INJ 2,000 MG in SODIUM CHLORIDE 0.9% INJ 100 ML IV SCH (16:00)
[2017-09-07] MEDS ORDERED: FAMOTIDINE 20 MG TAB PO SCH (21:00)
[2017-09-08] MEDS ORDERED: SODIUM CHLORIDE 0.9% FLUSH 10 ML FLUSH IV FLUSH SCH (09:00)
== END 2017-09-07 16:27 | DRG 464 ==
LOC: HSDI 05:30 → N06B 10:40
PROVIDERS: ADMIT Orthopaedic Surgery Orthopaedic Trauma; ATTEND Orthopaedic Surgery Orthopaedic Trauma
PROC: 0JBP0ZZ Excision of Left Lower Leg Subcutaneous Tissue and Fascia, Open Approach (ICD-10-PCS; principal; 2017-09-04 07:49)
PROC: 02HV33Z Insertion of Infusion Device into Superior Vena Cava, Percutaneous Approach (ICD-10-PCS; 2017-09-06)
PROC: B548ZZA Ultrasonography of Superior Vena Cava, Guidance (ICD-10-PCS; 2017-09-06)
DX: T84.623A Infection and inflammatory reaction due to internal fixation device of left tibia, initial encounter (principal); M86.9 Osteomyelitis, unspecified; J44.9 Chronic obstructive pulmonary disease, unspecified; B96.89 Other specified bacterial agents as the cause of diseases classified elsewhere; T84.89XA Other specified complication of internal orthopedic prosthetic devices, implants and grafts, initial encounter; M06.9 Rheumatoid arthritis, unspecified; I10 Essential (primary) hypertension; I25.10 Atherosclerotic heart disease of native coronary artery without angina pectoris; Z79.02 Long term (current) use of antithrombotics/antiplatelets; Z79.52 Long term (current) use of systemic steroids; E03.9 Hypothyroidism, unspecified; Z87.891 Personal history of nicotine dependence
CPT/HCPCS: 36569; 71010; 76937; 80053; 85025; 85027; 85610; 85730; 87015; 87070; 87077; 87102; 87116; 87176; 87186; 87205; 87206; 94150; J0690; J0696; J1580; J2270; J3370; J7050; J7120